=== PATIENT | male | born 1985 | race Two or more races ===

== ENCOUNTER 2024-03-19 12:23 | Inpatient (IN) | payer SELFPAY ==
[2024-03-19] VITALS (15 sets, daily range): BP systolic 100–142; BP diastolic 55–88; PULSE 71–102; RESP 15–97; TEMP 36.1–37.9; O2SAT 97–100; BMI 36.3; BMI 31.8; BMI 34.7
--- NOTE | 2024-03-19 13:09 | XR_ITS ---
Examination: CT abdomen with intravenous contrast CT pelvis with intravenous contrast 2-D coronal reconstructions 2-D sagittal reconstructions Date and time of exam:March 19, 2024 1458 hrs. Indications: Rectal pain today, diagnosis perianal abscess. CTDI: vol (mGy) 10.5 DLP: (mGycm) 640 Technique: Multiple axial sections of the abdomen and pelvis have been obtained. 64 slice high-resolution scanner used. 3 mm axial sections have been obtained, post intravenous injection 60 cc [id number] 2-D sagittal, coronal reconstructions obtained. Low dose protocols were performed. One or more of the following dose reduction techniques were used; automated exposure control, adjustment of the mA and/or KV according to patient size, use of iterative reconstruction technique. Findings: Diffuse fatty infiltration throughout the liver no focal liver or splenic lesions No gallstones No pancreatic or adrenal mass No renal or ureteral calculi, no hydronephrosis Aorta normal size Normal appendix No bowel obstruction Scattered colonic diverticulosis, no diverticulitis No bladder mass Normal seminal vesicles No prostatomegaly Prominent infectious mass with air densities in the anal region, primarily on the left side, measuring at least 7.5 x 6.8 cm with marked cellulitis in the anterior peritoneum Air density extends almost to the base of the scrotum Impression: Large perianal infectious mass, right primarily posterior and left-sided measuring at least 7.5 x 6.8 cm, recommend surgical consultation
--- NOTE | 2024-03-19 13:13 | PD.EDRME ---
Rapid Medical Screening Exam RME Arrival date/time: 03/19/24 12:23 39-year-old male presents emergency department complaints of boil on his buttock ongoing x 4 days patient reports pain and fever Chief Complaint: Skin/Abscess/Foreign Body Time Seen by Provider: 03/19/24 12:34 Vital signs: Vital Signs Temperature 98.5 F 03/19/24 12:59 Pulse Rate 102 H 03/19/24 12:59 Respiratory Rate 18 03/19/24 12:59 Blood Pressure 142/79 H 03/19/24 12:59 Pulse Oximetry (%) 98 03/19/24 12:59 Oxygen Delivery Method Room Air 03/19/24 12:59
--- NOTE | 2024-03-19 13:35 | EDNOTE_ITS ---
ED Skin Abcess FB-RME/HPI General Chief complaint: Skin/Abscess/Foreign Body Stated complaint: BOIL ON LEFT BUTT x 4 DAYS Time Seen by Provider: 03/19/24 12:34 Arrival date/time: 03/19/24 12:23 RME / HPI RME / HPI narrative: 39-year-old male patient with significant history of diabetes mellitus, currently not on medication, according to him controlled with diet, came in for evaluation regarding left gluteal swelling. Patient's been having worsening swelling for the last 5 days, associated with pain, described as dull ache, severity moderate. Patient was also noted to have fever for the last few days. Patient denies any abdominal pain denies any vomiting denies any testicular pain or dysuria. No medication was taken prior to arrival. Related Data Home Medications ?Medication ?Instructions ?Recorded ?Confirmed No Known Home Medications 03/19/24 03/19/24 Allergies Allergy/AdvReac Type Severity Reaction Status Date / Time No Known Allergies Allergy Verified 03/19/24 12:26 Review of Systems Review of Systems Narrative Review of Systems: Review of system reviewed and within normal limits except mentioned in HPI ED Exam Narrative Physical exam: VITAL SIGNS: Reviewe GENERAL APPEARANCE: Alert and interactive, follows commands, no acute distress, HEAD AND FACE: Non-traumatic. ENT: PERRL, pink conjunctivitis, eyelid no trauma, Mucous membrane moist. NECK: Supple, nontender, no nuchal rigidity. CHEST: No tenderness, no crepitus, no paradoxical movement, no retractions. LUNGS: Clear, well ventilated, symmetric, no rales, no wheezing, no ronchi, no stridor, good breath sounds bilaterally. HEART: Regular rate, regular rhythm, no murmur, no gallops. ABDOMEN: Soft, positive bowel sounds, nondistended, no guarding, nontender, no rebound, no masses, RECTAL: 4 x 8 cm swelling, redness, tenderness, left gluteal area near the Perirectal area.+ 2x2 cm necrosis on the middle of the swelling GENITAL: No tenderness no swelling on the scrotum and perineal area NEUROLOGICAL: Gross motor function intact sensory function intact, Appropriate for age. MUSCULOSKELETAL: low back nontender, full range of motion. EXTREMITIES: Nontender, full range of motion. SKIN: Color pink, dry, no rash, no lacerations, no abrasions, no contusions. LYMPHATICS: Deferred. Course Quality Measures none Orders Category Date Time Status Blood glucose [Blood Sugar Check-Sandostatin] STAT Care 03/19/24 16:21 Active COVID-19 Screening Questionnaire NOW Care 03/19/24 16:[address] Screening NOW Care 03/19/24 13:10 Active Decision to Admit X1 Care 03/19/24 16:21 Completed Insert IV NOW Care 03/19/24 13:10 Active NPO NOW Care 03/19/24 17:03 Active Consult to General Surgery Stat Cons 03/19/24 13:53 Ordered Diet NPO (NOW) Diet 03/19/24 17:[address] abdomen pelvis w con Stat Exams 03/19/24 13:09 Completed A1C [Glycohemoglobin w (eAG)] Stat Lab 03/19/24 13:35 Completed Acetone [Beta Hydroxybutyrate] Stat Lab 03/19/24 16:33 Completed Blood Culture (Lab) Stat Lab 03/19/24 13:40 Received CBC Stat Lab 03/19/24 13:35 Completed CMP [Comprehensive Metabolic Panel] Stat Lab 03/19/24 16:33 Completed CRP [C-Reactive Protein] Stat Lab 03/19/24 13:35 Completed Comprehensive Metabolic Panel Stat Lab 03/19/24 13:35 Completed ESR [Sed Rate (ESR)] Stat Lab 03/19/24 13:35 Completed Lactate (Lactic Acid) Stat Lab 03/19/24 13:35 Completed Lactate (Lactic Acid) Stat Lab 03/19/24 16:33 Completed Lactic Acid, 3 HR Stat Lab 03/19/24 19:33 Ordered Procalcitonin Stat Lab 03/19/24 13:35 Completed Urinalysis Stat Lab 03/19/24 17:30 Completed Urine Culture Stat Lab 03/19/24 13:09 Ordered Acetaminophen Tab [Tylenol ES Tab] Med 03/19/24 13:35 Discontinued 1,000 mg PO X1 ONE Insulin Regular Med 03/19/24 14:38 Discontinued 10 unit SC X1 ONE Morphine Inj Med 03/19/24 13:38 Discontinued 4 mg IVP X1 ONE Ondansetron Inj [Zofran Inj] Med 03/19/24 13:38 Discontinued 4 mg IV X1 ONE Piper/Tazo 3.375 gm [Zosyn] 50 ml Med 03/19/24 13:10 Discontinued IV X1 Potassium Chloride [K-Dur] Med 03/19/24 14:38 Discontinued 40 meq PO X1 ONE Sodium Chloride 0.9% 1000 ml [Ns] 1,000 ml Med 03/19/24 13:35 Discontinued IV 999 mls/hr Sodium Chloride 0.9% 1000 ml [Ns] 1,000 ml Med 03/19/24 14:38 Discontinued IV 999 mls/hr Sodium Chloride 0.9% 1000 ml [Ns] 1,000 ml Med 03/19/24 16:30 Discontinued IV 999 mls/hr Vancomycin Inj 1,000 mg Med 03/19/24 13:10 Discontinued Sodium Chloride 0.9% 250 ml [Ns] 250 ml IV X1 Vital Signs Vital signs: Vital Signs Temperature 98.5 F 03/19/24 12:59 Pulse Rate 102 H 03/19/24 12:59 Respiratory Rate 18 03/19/24 12:59 Blood Pressure 142/79 H 03/19/24 12:59 Pulse Oximetry (%) 98 03/19/24 12:59 Oxygen Delivery Method Room Air 03/19/24 12:59 Skin / Abscess / Foreign Body MDM Narrative MDM Narrative:: 39-year-old male patient with significant history of diabetes mellitus, currently not on medication, according to him controlled with diet, came in for evaluation regarding left gluteal swelling. Patient's been having worsening swelling for the last 5 days, associated with pain, described as dull ache, se verity moderate. Patient was also noted to have fever for the last few days. Patient denies any abdominal pain denies any vomiting denies any testicular pain or dysuria. No medication was taken prior to arrival. Patient was initially evaluated by Dr. Elizabeth at 2 PM in the emergency room. Patient was noted to have leukocytosis 34.2 blood sugar was noted to be above 500 with no sign of diabetic ketoacidosis. Patient hemoglobin A1c was noted to be 9.8. Pro-Venkatesh 0.53. CT scan of the abdomen and pelvis showed Large perianal infectious mass, right primarily posterior and left-sided measuring at least 7.5 x 6.8 cm, recommend surgical consultation Patient data External records reviewed:: None Clinical information provided by:: patient Social determinants that could affect healthcare access:: none Patient has the following chronic illnesses:: Diabetes mellitus not on medications How is presenting disease/condition affected by chronic disease/condition?: exacerbated by Evaluation data The following diagnostics were reviewed and interpreted by me:: lab results and radiology exam(s) Lab and/or radiology exams considered but not ordered:: Plan Interpretation Summary: Patient was noted to have leukocytosis 34.2 blood sugar was noted to be above 500 with no sign of diabetic ketoacidosis. Patient hemoglobin A1c was noted to be 9.8. Pro-Venkatesh 0.53. CT scan of the abdomen and pelvis showed Large perianal infectious mass, right primarily posterior and left-sided measuring at least 7.5 x 6.8 cm, recommend surgical consultation Medications / Prescriptions Medications or Prescriptions considered but not ordered:: None Medication administrations:: Medication Administration History Acetaminophen (Acetaminophen 325 Mg Tablet) 650 mg PO Q6H PRN PRN Reason: Fever >100.3 or pain(1-3) Stop: 04/18/24 17:18 Dextrose (Dextrose 50%-Water Inj 50 Ml Syringe) 25 ml IV Q15MIN PRN PRN Reason: BG 50-70 responsive npo pt Stop: 04/18/24 17:38 Dextrose (Dextrose 50%-Water Inj 50 Ml Syringe) 50 ml IV Q15MIN PRN PRN Reason: BG <50 OR BG <70 & pt unresponsive Stop: 04/18/24 17:38 Glucagon (Glucagon Inj 1 Mg Vial) 1 mg IM Q15MIN PRN PRN Reason: BG <70, and no IV access Heparin Sodium (Porcine) (Heparin Sod Inj 5000 Unit/Ml Vial) 5,000 unit SC BID [facility] Stop: 04/03/24 08:59 Sodium Chloride (Ns) 1,000 mls @ 75 mls/hr IV .[id number] [facility]IXON Stop: 04/18/24 17:29 Piperacillin Sod/Tazobactam (Sod 4.5 gm/ Sodium Chloride) 100 mls @ 200 mls/hr IV Q6HR [facility] Stop: 03/26/24 18:06 Sodium Chloride (Ns) 1,000 mls @ 999 mls/hr IV .Q1H1M ONE Stop: 03/19/24 19:10 Last Admin: 03/19/24 18:19 Dose: 999 mls/hr Documented By: GM Ibuprofen (Ibuprofen Tab 600 Mg Tablet) 600 mg PO Q6H PRN PRN Reason: PAIN SCALE 1-3 (mild Stop: 04/18/24 17:23 Insulin Glargine (Insulin Glargine (Lantus) 5 Unit/0.05 Ml (Per 5 Units)) 10 unit SC QDAY [facility] Stop: 04/19/24 08:59 Insulin Human Lispro (Insulin Lispro (Admelog) 1 Unit/0.01 Ml Unit) 0 unit SC Q6HR NIXON; Protocol Stop: 04/18/24 17:44 Last Admin: 03/19/24 17:53 Dose: Not Given Documented By: GM Non-Admin Reason: Cancelled by Provider Morphine Sulfate (Morphine Sulf Inj 10 Mg/Ml Vial) 2 mg IVP Q4HR PRN PRN Reason: PAIN SCALE 7-10 (Severe Stop: 03/24/24 17:29 Nicotine (Nicotine Patch 7 Mg/24 Hr Patch.Td24) 7 mg TOP QDAY [facility] Stop: 04/18/24 17:44 Ondansetron HCl (Ondansetron Inj 2 Mg/Ml Inj 2 Ml) 4 mg IV Q6H PRN; Protocol PRN Reason: NAUSEA OR VOMITING Stop: 04/18/24 17:23 Oxycodone/Acetaminophen (Oxycodone/Apap 5/325 Tablet) 1 tab PO Q6H PRN PRN Reason: PAIN SCALE 4-6 (Moderate Stop: 03/24/24 17:23 Pantoprazole Sodium (Pantoprazole Inj 40 Mg Vial) 40 mg IVP QDAY [facility] Stop: 04/19/24 08:59 Polyethylene Glycol (Polyethylene Glycol 17 Gm Packet) 17 gm PO QDAY PRN PRN Reason: CONSTIPATION Stop: 04/19/24 08:59 Sennosides (Senna Tablet) 1 tab PO QDAY PRN; Protocol PRN Reason: constipation Stop: 04/18/24 17:29 Discontinued Medications Acetaminophen (Acetaminophen 500 Mg Tablet) 1,000 mg PO X1 ONE Stop: 03/19/24 13:36 Last Admin: 03/19/24 14:07 Dose: 1,000 mg Documented By: NEHEMIAS Acetaminophen (Acetaminophen 325 Mg Tablet) 650 mg PO Q6H PRN PRN Reason: Fever >101.5 Stop: 04/18/24 17:18 Acetaminophen (Acetaminophen 325 Mg Tablet) 650 mg PO Q6H PRN PRN Reason: Fever >100.3 or pain(1-3) Stop: 04/18/24 17:18 Acetaminophen (Acetaminophen 325 Mg Tablet) 650 mg PO Q6H PRN PRN Reason: Fever >100.3 or pain(1-3) Stop: 04/18/24 17:18 Fentanyl Citrate (Fentanyl Cit Inj 50 Mcg/Ml Amp 2ml) Confirm Administered Dose 100 mcg .ROUTE .STK-MED ONE Stop: 03/19/24 18:15 Heparin Sodium (Porcine) (Heparin Sod Inj 5000 Unit/Ml Vial) 5,000 unit SC Q8HR [facility] Stop: 04/02/24 21:59 Vancomycin HCl 1,000 mg/ (Sodium Chloride) 250 mls @ 150 mls/hr IV X1 ONE Stop: 03/19/24 14:49 Last Admin: 03/19/24 14:12 Dose: 150 mls/hr Documented By: NEHEMIAS Piperacillin/Tazobactam/Dextrose (Zosyn) 50 mls @ 100 mls/hr IV X1 ONE Stop: 03/19/24 13:39 Last Infusion: 03/19/24 14:50 Dose: Infused Documented By: Admin: 03/19/24 14:11 Dose: 100 mls/hr Documented By: NEHEMIAS Sodium Chloride (Ns) 1,000 mls @ 999 mls/hr IV .Q1H1M ONE Stop: 03/19/24 14:35 Last Infusion: 03/19/24 15:40 Dose: Infused Documented By: Admin: 03/19/24 14:07 Dose: 999 mls/hr Documented By: NEHEMIAS Sodium Chloride (Ns) 1,000 mls @ 999 mls/hr IV .Q1H1M ONE Stop: 03/19/24 15:38 Last Infusion: 03/19/24 16:40 Dose: Infused Documented By: Admin: 03/19/24 15:33 Dose: 999 mls/hr Documented By: Sodium Chloride (Ns) 1,000 mls @ 999 mls/hr IV .Q1H1M ONE Stop: 03/19/24 17:30 Last Admin: 03/19/24 16:40 Dose: 999 mls/hr Documented By: BASILIO Piperacillin/Tazobactam/Dextrose (Zosyn) 50 mls @ 12.5 mls/hr IV Q8HR [facility] Stop: 03/26/24 21:59 Ibuprofen (Ibuprofen Tab 600 Mg Tablet) 600 mg PO Q6H PRN PRN Reason: PAIN SCALE 1-3 (mild Stop: 04/18/24 17:23 Insulin Human Regular (Insulin Hum Regular 1 Unit/0.01 Ml (Per Unit)) 10 unit SC X1 ONE Stop: 03/19/24 14:39 Last Admin: 03/19/24 15:32 Dose: 10 unit Documented By: BASILIO Co-signed By: NEHEMIAS Insulin Human Regular (Insulin Hum Regular 1 Unit/0.01 Ml (Per Unit)) 8 unit SC X1 ONE Stop: 03/19/24 17:28 Last Admin: 03/19/24 17:52 Dose: Not Given Documented By: BASILIO Non-Admin Reason: Duplicate Medication on eMAR Insulin Human Regular (Insulin Hum Regular 1 Unit/0.01 Ml (Per Unit)) 8 unit SC X1 ONE Stop: 03/19/24 17:35 Midazolam HCl (Midazolam Inj 1 Mg/Ml Vial 2 Ml) Confirm Administered Dose 2 mg .ROUTE .STK-MED ONE Stop: 03/19/24 18:15 Morphine Sulfate (Morphine Sulf Inj 10 Mg/Ml Vial) 4 mg IVP X1 ONE Stop: 03/19/24 13:39 Last Admin: 03/19/24 14:08 Dose: 4 mg Documented By: NEHEMIAS Ondansetron HCl (Ondansetron Inj 2 Mg/Ml Inj 2 Ml) 4 mg IV X1 ONE; Protocol Stop: 03/19/24 13:39 Last Admin: 03/19/24 14:08 Dose: 4 mg Documented By: NEHEMIAS Polyethylene Glycol (Polyethylene Glycol 17 Gm Packet) 17 gm PO QDAY PRN PRN Reason: contipation Stop: 04/19/24 08:59 Potassium Chloride (Potassium Chloride 20 Meq Tabcr) 40 meq PO X1 ONE Stop: 03/19/24 14:39 Last Admin: 03/19/24 15:30 Dose: 40 meq Documented By: BASILIO Propofol (Propofol Inj 10 Mg/Ml Vial 20 Ml) Confirm Administered Dose 200 mg IV .STK-MED ONE Stop: 03/19/24 18:15 Patient received potassium, Zofran, morphine, insulin, 2 L of IV fluids NS, IV Zosyn and Vanco. Patient is also given Tylenol for Consultations Consultation(s) initiated? (list below): Yes Consultation #1 (Physician, Specialty, Details): Dr Garcia, general surgeon on-call, thank you Diagnosis Skin/Abscess Differential Diagnosis: abscess of skin or subcutaneous tissue and other (Perirectal abscess, abscess/cellulitis to the gluteal area) Most likely diagnosis given after review of the tests above:: Abscess/cellulitis left gluteal area Admission Indicated Admission indicated?: indicated Explain why admission is indicated or not indicated:: For further management Admission Request Was there a request for admission?: Yes Admission Attestation Admission request attestation: Discussed case with [Dr Glass] from Hospitalist service regarding admission. Discussed patients ED course, exam findings, labs, and radiology results. The Hospitalist [agrees] to accept the patient for admission. Disposition Plan Disposition Plan: Admit Discharge Plan Plan Patient Disposition: Admit Acute Care w/in Hospital Disposition Comment: stable Problem List Clinical Impression: Abscess and cellulitis of gluteal region, Diabetes mellitus
[2024-03-19 14:02] LABS: Lactate (Lactic Acid) 3.5 mMol/L (0.4-2.0)
[2024-03-19 14:04] LABS: Basophils # (Auto) 0.1 Thou/mm3 (0.0-0.2); Basophils % (Auto) 0 % (0-2.5); Eosinophils % (Auto) 0 % (0-10); Hematocrit 40.2 % (41.0-53.0); Hemoglobin 14.4 g/dL (13.5-16.0); Immature Granulocytes % (Auto) 2 % (0-0); Immature Granulocytes Auto 0.67 Thou/mm3 (0.00-0.00); Lymphocytes # (Auto) 1.2 Thou/mm3 (1.0-4.8); Lymphocytes % (Auto) 4 % (10-50); Mean Corpuscular HGB Conc 35.8 g/dl (31.0-37.0); Mean Corpuscular Hemoglobin 30.8 pg (25.0-35.0); Mean Corpuscular Volume 86 fL (80-100); Monocytes # (Auto) 1.2 Thou/mm3 (0.0-0.8); Monocytes % (Auto) 4 % (0-12); Neutrophils % (Auto) 90 % (37-80); Nucleated Red Blood Cell % 0 /100 WBC (0); Platelet Count 447 Thou/mm3 (140-440); RDW Standard Deviation 38.4 fL (35.1-43.9); Red Blood Count 4.67 Miln/mm3 (4.50-5.90); White Blood Count 34.2 Thou/mm3 (3.8-10.6)
[2024-03-19] MEDS: ACETAMINOPHEN 500 MG TABLET 1000 MG PO (14:07)
[2024-03-19] MEDS: SODIUM CHLORIDE 0.9% 1000 ML 1,000 ML 999 ML IV ×4 (14:07→18:19)
[2024-03-19] MEDS: ONDANSETRON INJ 2 MG/ML INJ 2 ML 4 MG IV (14:08)
[2024-03-19] MEDS: MORPHINE SULF INJ 10 MG/ML VIAL 4 MG IVP (14:08)
[2024-03-19] MEDS: PIPER/TAZO 3.375 GM 50 ML IV (14:11)
[2024-03-19] MEDS: Vancomycin Inj 1,000 MG in SODIUM CHLORIDE 0.9% 250 ML 250 ML 150 MG IV (14:12)
[2024-03-19 14:33] LABS: Alanine Aminotransferase 50 U/L (10-49); Albumin, Serum 4.5 gm/dL (3.5-5.0); Albumin/Globulin Ratio 1.2 (1.2-2.2); Alkaline Phosphatase 175 U/L (46-116); Anion Gap 12 (7-16); Aspartate Amino Transferase 34 U/L (0-34); BUN/Creatinine Ratio 13 Ratio (12-20); Bilirubin,Total 0.6 mg/dL (0.3-1.2); Blood Urea Nitrogen 14 mg/dL (9-23); C-Reactive Protein 32.7 mg/dL (0.0-0.9); Calcium 9.3 mg/dL (8.3-10.6); Calcium (Corrected) 9.3 mg/dL (8.5-10.1); Carbon Dioxide 22.5 mMol/L (20.0-31.0); Chloride 91 mMol/L (98-107); Creatinine (Component) 1.1 mg/dL (0.6-1.3); Estimated Creatinine Clearance 96.3 mL/min (>60); Globulin 3.7 gm/dL (2.3-3.5); Osmolality,Calculated 276 (275-295); Potassium 3.7 mMol/L (3.4-5.1); Procalcitonin 0.53 ng/ml (0.0-0.49); Sodium 125 mMol/L (136-145); Total Protein 8.2 gm/dL (5.7-8.2); eGFR > 60 See Note
[2024-03-19 14:34] LABS: Glucose 534 mg/dL (74-106)
[2024-03-19 14:55] LABS: Sed Rate (ESR) 96 mm/hr (0-15)
[2024-03-19 15:03] LABS: Glucose Estimated Average 235 mg/dL (80-131); Hemoglobin A1C 9.8 % Hgb (4.8-6.0)
[2024-03-19] MEDS: POTASSIUM CHLORIDE 20 mEq TABCR 40 MEQ PO (15:30)
[2024-03-19] MEDS: INSULIN HUM REGULAR 1 UNIT/0.01 ML (PER UNIT) 10 UNIT SC ×2 (15:32→18:33)
[2024-03-19 16:36] LABS: Lactate (Lactic Acid) 1.7 mMol/L (0.4-2.0)
[2024-03-19 16:40] LABS: Beta Hydroxybutyrate 0.3 mmol/L (<0.6)
[2024-03-19 16:57] LABS: Reflex Lactate? Y
[2024-03-19 17:01] LABS: Alanine Aminotransferase 43 U/L (10-49); Albumin, Serum 3.9 gm/dL (3.5-5.0); Albumin/Globulin Ratio 1.1 (1.2-2.2); Alkaline Phosphatase 157 U/L (46-116); Anion Gap 11 (7-16); Aspartate Amino Transferase 22 U/L (0-34); BUN/Creatinine Ratio 14 Ratio (12-20); Bilirubin,Total 0.6 mg/dL (0.3-1.2); Blood Urea Nitrogen 11 mg/dL (9-23); Calcium 8.7 mg/dL (8.3-10.6); Calcium (Corrected) 8.8 mg/dL (8.5-10.1); Chloride 98 mMol/L (98-107); Creatinine (Component) 0.8 mg/dL (0.6-1.3); Estimated Creatinine Clearance 132.4 mL/min (>60); Globulin 3.4 gm/dL (2.3-3.5); Glucose 345 mg/dL (74-106); Osmolality,Calculated 277 (275-295); Potassium 3.5 mMol/L (3.4-5.1); Sodium 132 mMol/L (136-145); Total Protein 7.3 gm/dL (5.7-8.2); eGFR > 60 See Note
--- NOTE | 2024-03-19 17:16 | ESHP_ITS ---
<Statement entered by Mynor Prado MD - 03/19/24 18:46> This patient is a 39-year-old male with past medical history of diabetes managed with diet only not on any medication with an A1c of 9.8 presented to the ED with chief complaint of left gluteal swelling and pain from last 5 days. He noted that he had a fever spike of 103 today. Patient had intractable pain today and he came to the ED. Examination showed necrotic abscess on the left gluteal/buttock region. CT abdomen pelvis showed perianal abscess/mass patient is admitted for left gluteal/perianal abscess. Vitals were stable. Patient had elevated procalcitonin and CRP with ESR. White count was elevated at 35. Patient had a significant elevation of blood sugars on labs 530s therefore regular insulin was administered by the ED. We have given additional 10 units of regular insulin as the patient was ready to be taken to the OR by surgeon, Dr. Elizabeth. Will currently managing with IV fluids, IV Zosyn 4.5 g Q6 hourly and ordered blood cultures and MRSA screen. Ordered Lantus 10 units for tomorrow and insulin sliding scale. Diabetic education and refer to registered dietitian. Patient will be kept n.p.o. Will likely follow on tomorrow morning. Surgery recommended to keep a close eye on his blood pressure as he has a high risk of having deep abscess as compared to the imaging and may need possible transfer to higher care facility however he will assess and give his recommendations after surgery. All labs and orders were reviewed. I saw and examined the patient, and I agree with current management stated by Dr Jose D DO,PGY1. Plan of care was discussed with the attending physician and resident physician. Disclaimer: Despite multiple revisions, due to the dictation software being used, the document bellow may not be free of grammatical errors including phonetic/typographic errors. However, this does not deter from our commitment to providing health care in the patient's best interest in mind. Dr. Johan MD, PGY 2 Documentation for date of: 03/19/24 HPI History of Present Illness History of present illness: Patient is a 39-year-old male with a past medical history of diabetes (diet controlled) who presents to the emergency department for chief complaint of right buttock swelling x 4 days. Patient states that for the last 6 days he had some minor drainage of what appeared to be purulent material on his left buttock. Over the last few days however, his right buttock began to swell and became extremely tender, and patient attests to a few fevers over this period. Patient attests to pain on defecation, however denies any hematochezia or melena. Patient states that he had recently been diagnosed with diabetes 1 year ago, but does not follow-up with PCP regularly and states that he was controlling his diabetes with diet. Physical exam reveals significant right buttock swelling, erythema, tenderness, and firmness upon palpation. No apparent drainage or skin breaks are noted on the right buttock. Left buttock shows erythema, tenderness, apparent black scar tissue. No obvious drainage or deep pockets of drainage on pressure however this assessment is limited due to patient pain. Patient denies any recent nausea/vomiting, chest pain/palpitations/chest pressure, abdominal pain, urinary symptoms, sensorineural deficits, changes in vision hearing, loss of consciousness. In the emergency department vitals were blood pressure 142/79, heart rate of 102, respiratory rate 18, temperature 98.5, saturating 100% on room air. White count elevated at 34.2, sodium 125 (corrected 132). Glucose 534, HbA1c 9.8, lactic acid 3.5, C-reactive protein 32.7, Pro-Venkatesh slightly elevated at 0.53. CT abdomen pelvis shows large perianal infectious mass, right primarily posterior and left-sided measuring at least 7.[address] Elizabeth consulted from the emergency department and states that he will perform incision and drainage. Patient given 2 L NS, Zosyn, vancomycin, 10 units insulin. Patient will be admitted for management of perianal abscess. PMH: Diabetes- not on medication PSH: none Social: Alcohol- once a week Drugs- marijuana Smoke- 3 cigarettes a day NKDA Exam Vital Signs Temp Pulse Resp BP Pulse Ox O2 Del Method 98.1 F 77 15 120/65 100 Room Air 03/19/24 15:41 03/19/24 15:20 03/19/24 15:20 03/19/24 15:20 03/19/24 15:20 03/19/24 15:20 Narrative Exam GENERAL: Patient appears to be moderate distress, NC/AT, responsive/cooperative. 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 Eyes open, symmetrical, & clear CARDIO: No chest pain on palpation. Heart RRR, no obvious murmurs PULM: No noted coughing/dyspnea. Lungs CTA B/L, no R/W/R GI: Abdomen soft, nondistended, no pain on palpation. BSx4. URO/MANAGER LEGAL:: No further abnormalities noted. Jett catheter/cannister _ SKIN/MSK/EXT: significant right buttock swelling, erythema, tenderness, and firmness upon palpation. No apparent drainage or skin breaks are noted on the right buttock. Left buttock shows erythema, tenderness, apparent black scar tissue. No obvious drainage or deep pockets of drainage on pressure however this assessment is limited due to patient pain. Pedal pulses present B/L Results: Labs 03/19/24 13:35 03/19/24 16:33 Labs: Short CBC 03/19/24 Range/Units 13:35 WBC 34.2 H (3.8-10.6) Thou/mm3 Hgb 14.4 (13.5-16.0) g/dL Hct 40.2 L (41.0-53.0) % Plt Count 447 H (140-440) Thou/mm3 BMP 03/19/24 03/19/24 13:35 16:33 Sodium 125 L 132 L Potassium 3.7 3.5 Chloride 91 L 98 Carbon Dioxide 22.5 23.0 BUN 14 11 Creatinine 1.1 0.8 Glucose 534 H* 345 H D Calcium 9.3 8.7 Liver Function 03/19/24 03/19/24 Range/Units 13:35 16:33 Total Bilirubin 0.6 0.6 (0.3-1.2) mg/dL AST 34 22 (0-34) U/L ALT 50 H 43 (10-49) U/L Alkaline Phosphatase 175 H 157 H (46-116) U/L Albumin 4.5 3.9 D (3.5-5.0) gm/dL Quality Measures Quality Measures none Medications Home Medications and Allergies Home Medications ?Medication ?Instructions ?Recorded ?Confirmed ?Type No Known Home Medications 03/19/24 03/19/24 History Allergies Allergy/AdvReac Type Severity Reaction Status Date / Time No Known Allergies Allergy Verified 03/19/24 12:26 Visit Medications Sodium Chloride (Ns) 1,000 mls @ 999 mls/hr IV .Q1H1M ONE Stop: 03/19/24 17:30 Last Admin: 03/19/24 16:40 Dose: 999 mls/hr Discontinued Medications Acetaminophen (Acetaminophen 500 Mg Tablet) 1,000 mg PO X1 ONE Stop: 03/19/24 13:36 Last Admin: 03/19/24 14:07 Dose: 1,000 mg Vancomycin HCl 1,000 mg/ (Sodium Chloride) 250 mls @ 150 mls/hr IV X1 ONE Stop: 03/19/24 14:49 Last Admin: 03/19/24 14:12 Dose: 150 mls/hr Piperacillin/Tazobactam/Dextrose (Zosyn) 50 mls @ 100 mls/hr IV X1 ONE Stop: 03/19/24 13:39 Last Infusion: 03/19/24 14:50 Dose: Infused Sodium Chloride (Ns) 1,000 mls @ 999 mls/hr IV .Q1H1M ONE Stop: 03/19/24 14:35 Last Infusion: 03/19/24 15:40 Dose: Infused Sodium Chloride (Ns) 1,000 mls @ 999 mls/hr IV .Q1H1M ONE Stop: 03/19/24 15:38 Last Infusion: 03/19/24 16:40 Dose: Infused Insulin Human Regular (Insulin Hum Regular 1 Unit/0.01 Ml (Per Unit)) 10 unit SC X1 ONE Stop: 03/19/24 14:39 Last Admin: 03/19/24 15:32 Dose: 10 unit Morphine Sulfate (Morphine Sulf Inj 10 Mg/Ml Vial) 4 mg IVP X1 ONE Stop: 03/19/24 13:39 Last Admin: 03/19/24 14:08 Dose: 4 mg Ondansetron HCl (Ondansetron Inj 2 Mg/Ml Inj 2 Ml) 4 mg IV X1 ONE; Protocol Stop: 03/19/24 13:39 Last Admin: 03/19/24 14:08 Dose: 4 mg Potassium Chloride (Potassium Chloride 20 Meq Tabcr) 40 meq PO X1 ONE Stop: 03/19/24 14:39 Last Admin: 03/19/24 15:30 Dose: 40 meq Assessment & Plan Plan Patient is a 39-year-old male with a past medical history of diabetes, diet- controlled presenting with buttock pain and swelling. Patient admitted for management of perianal abscess. #Perianal abscess #Significant cellulitis of buttock area Patient met 2 SIRS criteria on admission with white count of 34.2 and heart rate 102 Physical exam reveals erythema, tenderness, warmth of right and left buttock. CT abdomen pelvis shows large perianal infectious mass right left side proximally measuring 7.5 x 6.8 cm LRINEC Score 9 ?Zosyn 4.5 g 4 times a day 03/19? ?Maintenance fluids -Pain control medication with acetaminophen, oxycodone and morphine in place -MRSA screen ordered, pending -Blood culture ordered, pending -UA and urine culture ordered in the emergency department, pending -Bowel regiment with senna and MiraLAX as needed ? Dr. Elizabeth consulted from emergency department, will perform incision and drainage possibly tonight. Patient's last meal 11 AM today. Appreciate recommendations ?N.p.o. now for possible procedure tonight # Uncontrolled Diabetes Patient has a history of diabetes but does not follow-up with PCP. Patient states that he controls diabetes with diet. Glucose on presentation in ED 534 HbA1c 9.5 Given 10 units regular insulin in ED Repeat glucose 323 -Given another 8 units regular insulin ?Lantus 10 units nightly -Lispro via sliding scale, will adjust accordingly -Hypoglycemic protocol in place ?Bedside glucose checks every 6 hours Diet: NPO GI: Pantoprazole DVT: SCDs, heparin Jett: None [facility] Rec: N/A Code: Full Patient seen and assessed with my attending physician Dr. Nixon and senior resident Dr. Johan Topete D.O. PGY1 Anesthesiology Attending Provider Attestation/Addendum I have discussed and was present for the essential components of the history, physical examination, diagnosis, and treatment plan with the resident. I agree with the patient's care as documented by the resident and amended herein by me. Paul Nixon DO. Admitted for perianal abscess, significant cellulitis in the perianal/buttocks region. Will continue Zosyn at this time, general surgery consulted for urgent I&D, as there is concern for foreign years gangrene considering the extensive nature the patient's cellulitis. A1c ordered, the patient does have uncontrolled diabetes as it appears, significant hyperglycemia on admission. Will continue to monitor closely Although this document has been carefully reviewed, there may still be some phonetic and other typographical errors. These errors are purely grammatical due to imperfections in the software program and should not be construed in any way to compromise the substance of the patient's medical care during this visit.
[2024-03-19 17:45] LABS: Collection Type, Urine Clean Catch
--- NOTE | 2024-03-19 17:45 | PC.NURSE ---
Spoke Dr. Elizabeth and given verbal orders to ready consent for procedure and keep pt NPO.
[2024-03-19 17:52] LABS: Bilirubin,Urine Negative (Negative); Blood,Urine Negative (Negative); Clarity,Urine Clear (Clear/Hazy); Color,Urine Lt-Yellow (Lt Yel-Yel); Glucose, Urine 4+ (Negative); Ketones,Urine Trace (Negative); Leukocyte Esterase,Urine Negative (Negative); Nitrite,Urine Negative (Negative); PH,Urine 6.5 (5.0-7.0); Protein,Urine Negative (Neg - Trace); RBC,Urine < 1 /hpf (0-3); Specific Gravity,Urine 1.036 (1.001-1.035); Squamous Epithelial Cell,Urine < 1 /hpf (0-5); Urobilinogen,Urine Negative mg/dL (0.0-1.0); WBC,Urine < 1 /hpf (0-5)
[2024-03-19 18:03] LABS: Phosphorous 3.8 mg/dL (2.4-5.1)
[2024-03-19 18:30] LABS: Glucose Estimated Average 235 mg/dL (80-131); Hemoglobin A1C 9.8 % Hgb (4.8-6.0)
--- NOTE | 2024-03-19 18:33 | PD.SURCONS ---
HPI Consult details Consult date: 03/19/24 Reason for consultation narrative: The patient was seen in consultation because of large perirectal abscess and inflammation History of present illness: History of present illness that the patient has been a diabetic and has been taking metformin about 4 days ago he noticed some redness. Patient has been started draining today therefore he came to the emergency room. He does have some pain but not unbearable discomfort. He also had a fever. He has not had any major infection in the past Past Medical History Past Medical History CARDIAC: Negative Cardiac Disorders or Congestive Heart Failure RESPIRATORY: Negative Chronic Obstructive Pulmonary Disease (COPD) or Asthma GENITOURINARY: Negative Renal Disease ENDOCRINE: Positive Diabetes Mellitus Type 2; Negative Diabetes Mellitus Type 1 HEMATOLOGIC: Negative Sickle Cell Disease Social History SMOKING STATUS: Heavy (> 1 pack/day) Meds Home Medications and Allergies Home Medications ?Medication ?Instructions ?Recorded ?Confirmed ?Type No Known Home Medications 03/19/24 03/19/24 History Allergies Allergy/AdvReac Type Severity Reaction Status Date / Time No Known Allergies Allergy Verified 03/19/24 12:26 Exam Vital Signs Temp Pulse Resp BP Pulse Ox O2 Del Method 98.1 F 86 15 125/88 H 99 Room Air 03/19/24 18:01 03/19/24 18:01 03/19/24 18:01 03/19/24 18:03/19/24 18:03/19/24 18:01 Narrative Exam Physical examination revealed a well-built well-nourished male who is 5 foot 6 inches tall weighing 197 pounds. His vital signs are normal Constitutional Constitutional: moderate distress Routine Rectal Exam Comments: Examination of the perirectal area showed large cellulitis over the left buttock with necrosis of the skin and some drainage. Patient also has a pilonidal cyst with just open and drain. It is difficult to palpate the left buttock because of the pain Routine Exam Comments: Deferred Routine Extremities Exam Comments: Negative Results Results: Laboratory Laboratory Narrative: Patient's laboratory workup showed a WBC of 34,200 with a shift to the left. His glucose is 534 and his sodium is 125 with chloride of 91 obviously due to hyperglycemia. His lactic acid is 3.5 Results: Imaging Imaging narrative: CT scan showed large perianal abscess with extensive cellulitis in the perineum measuring 7 x 6.8 cm. There are densities showing anaerobic infection Additional studies: After the patient was given 2 L of IV fluid sodium has come up to 132 and his glucose is down to 302. His lactic acid is 1.7 Assessment & Plan Additional Assessment Additional comments: Impression: Perianal cellulitis with necrosis of the skin suggesting fair fascial necrosis Poorly controlled diabetes Sepsis secondary to #1 Plan Plan: Patient may have something similar to [place] gangrene. The necrosis is an ominous sign showing that he may have some subcutaneous necrosis as well. Patient is therefore will require emergency drainage. I told him that he may need to go to the tertiary Medical Center in case we cannot resolve the skin. Patient is agreeable to the immediate incision and drainage and debridement under general anesthesia.
--- NOTE | 2024-03-19 19:48 | SUR.PHASEI ---
pt received to [facility]. lma in place, removed by horace on arrival. pt awake and alert. vss. breathing even and unlabored. underware cdi with packing fluffs and abd pad in place to back side. report from nora and nurse shade
--- NOTE | 2024-03-19 19:54 | ESOP_ITS ---
Date of Procedure 03/19/24 Pre Op Diagnosis Fasciitis over the left buttock with perianal infection Post Op Diagnosis Same Procedure Incision and drainage of the perirectal abscess with extensive debridement of the necrotic tissue Findings Patient had a considerable amount of necrosis on the subcutaneous tissue due to extensive diabetic infection. Therefore the procedure was indicated Procedure Description After the patient was brought to the operating room LMA anesthesia was given. He was then kept in lithotomy position. The left perianal area was washed with Betadine solution and draped in a sterile manner. Timeout was performed. Then made incision over the necrotic skin which was seen over the left buttock and thick purulent material came out which was cultured. Upon further exploration I found extensive necrotic tissue which was grayish something similar to what we see in decubitus ulcer. This required an extensive debridement of the skin subcutaneous tissue all the way down to the fat in the buttock region. Wound was then extensively irrigated with Pulsavac and packed with wet Kerlix roll and dressing was applied with fluff. Patient tolerated the procedure well Anesthesia other (General LMA) Pathology / specimen None IVF Infused 800 Estimated Blood Loss 100 Surgeon Isabella Garcia MD Surgical Staff Operation Date: 03/19/24 18:30 Case Staff HEALTH CARE SOCIAL WORKER: Andrew Randall RNnutrient management specialist: Jonathon Simms RNnutrient management specialist: Dayanna Buck
[2024-03-19] MEDS: fentaNYL CIT INJ 50 mCg/ML AMP 2ML IV (20:19)
--- NOTE | 2024-03-19 20:30 | SUR.PHASEI ---
report called to nurse park on ms. pt transported via bed. alert and oriented. dressing remains intact. vss. breathing cdi. fc draining to gravity. states pain relief from iv m,ed. denies nausea.
[2024-03-19] MEDS: SODIUM CHLORIDE 0.9% 1000 ML 1,000 ML 100 ML IV (21:05)
[2024-03-19] MEDS: oxyCODONE/APAP 5/325 TABLET 1 TAB PO (21:34)
[2024-03-19 22:04] LABS: Amphetamine/Methamp Scrn,U Negative (Negative); Barbiturate Screen,Urine Negative (Negative); Benzodiazepines Screen,Urine Negative (Negative); Benzoylecgonine Screen, Ur Negative (Negative); Creatinine MALB Rnd Ur 27 mg/dL (30-125); Fentanyl Screen,Urine Negative (Negative); Microalbumin, Random Urine < 3 mg/L (0-300); Opiate Screen,Urine Positive (Negative); THC Screen,Urine Positive (Negative)
--- NOTE | 2024-03-19 22:50 | PC.NURSE ---
Zosyn scheduled at 1826 not given due to Pt arrived to [facility] floor at 2034. Per Joey, pharmacist, okay to start medication at midnight of 03/20/24.
--- NOTE | 2024-03-19 22:55 | PC.NURSE ---
Tahirasyn scheduled at 1826 not given due Pt arrived to [facility] floor at 2034. Per Joey, pharmacist, jackie to start medication at midnight of 03/20/24.
[2024-03-19] MEDS: PIPER/TAZO INJ 4.5 GM in SODIUM CHLORIDE 0.9% (P) 100 ML IV (23:20)
[2024-03-20] VITALS (12 sets, daily range): BP systolic 107–121; BP diastolic 55–78; PULSE 82–100; RESP 13–98; TEMP 36.1–36.8; O2SAT 97–99
[2024-03-20] MEDS: oxyCODONE/APAP 5/325 TABLET 1 TAB PO ×3 (03:35→21:23)
[2024-03-20] MEDS: PIPER/TAZO INJ 4.5 GM in SODIUM CHLORIDE 0.9% (P) 100 ML IV ×3 (05:23→17:58)
[2024-03-20 06:07] LABS: Basophils # (Auto) 0.1 Thou/mm3 (0.0-0.2); Basophils % (Auto) 0 % (0-2.5); Eosinophils # (Auto) 0.1 Thou/mm3 (0.0-0.5); Eosinophils % (Auto) 0 % (0-10); Hematocrit 31.4 % (41.0-53.0); Hemoglobin 10.9 g/dL (13.5-16.0); Immature Granulocytes % (Auto) 2 % (0-0); Immature Granulocytes Auto 0.55 Thou/mm3 (0.00-0.00); Lymphocytes # (Auto) 2.8 Thou/mm3 (1.0-4.8); Lymphocytes % (Auto) 9 % (10-50); Mean Corpuscular HGB Conc 34.7 g/dl (31.0-37.0); Mean Corpuscular Volume 89 fL (80-100); Monocytes # (Auto) 1.6 Thou/mm3 (0.0-0.8); Monocytes % (Auto) 5 % (0-12); Neutrophils # (Auto) 27.3 Thou/mm3 (1.8-7.7); Neutrophils % (Auto) 84 % (37-80); Nucleated Red Blood Cell % 0 /100 WBC (0); Platelet Count 388 Thou/mm3 (140-440); RDW Standard Deviation 40.6 fL (35.1-43.9); Red Blood Count 3.52 Miln/mm3 (4.50-5.90); White Blood Count 32.5 Thou/mm3 (3.8-10.6)
[2024-03-20 06:16] LABS: INR 1.1 (0.9-1.3); Partial Thromboplastin Time 37.9 Seconds (22.0-36.0); Prothrombin Time 12.4 Seconds (9.0-12.2)
[2024-03-20 06:48] LABS: Alanine Aminotransferase 47 U/L (10-49); Albumin, Serum 3.5 gm/dL (3.5-5.0); Albumin/Globulin Ratio 1.2 (1.2-2.2); Alkaline Phosphatase 132 U/L (46-116); Anion Gap 10 (7-16); Aspartate Amino Transferase 27 U/L (0-34); BUN/Creatinine Ratio 13 Ratio (12-20); Bilirubin,Total 0.8 mg/dL (0.3-1.2); Blood Urea Nitrogen 10 mg/dL (9-23); Calcium 8.2 mg/dL (8.3-10.6); Calcium (Corrected) 8.6 mg/dL (8.5-10.1); Carbon Dioxide 24.3 mMol/L (20.0-31.0); Chloride 99 mMol/L (98-107); Creatinine (Component) 0.8 mg/dL (0.6-1.3); Estimated Creatinine Clearance 138.4 mL/min (>60); Globulin 2.9 gm/dL (2.3-3.5); Glucose 147 mg/dL (74-106); Magnesium 1.9 mg/dL (1.6-2.6); Osmolality,Calculated 268 (275-295); Phosphorous 2.6 mg/dL (2.4-5.1); Potassium 3.3 mMol/L (3.4-5.1); Sodium 133 mMol/L (136-145); Total Protein 6.4 gm/dL (5.7-8.2); eGFR > 60 See Note
[2024-03-20] MEDS: HEPARIN SOD INJ 5000 UNIT/ML VIAL SC ×2 (08:25→21:45)
[2024-03-20] MEDS: PANTOPRAZOLE INJ 40 MG VIAL IVP (08:26)
[2024-03-20] MEDS: INSULIN GLARGINE (Lantus) 5 UNIT/0.05 ML (PER 5 UNITS) 10 UNIT SC (08:26)
[2024-03-20] MEDS: INSULIN LISPRO (AdmeLOG) 1 UNIT/0.01 ML UNIT SC ×4 (08:26→21:46)
[2024-03-20] MEDS: MORPHINE SULF INJ 10 MG/ML VIAL 5 MG IVP (08:34)
[2024-03-20] MEDS: POT PHOS 15 mMol in NS 250 ML 15 MMOL/250 ML BAG 62.5 MMOL IV (10:12)
--- NOTE | 2024-03-20 10:23 | PD.SURPROG ---
Documentation for date of: 03/20/24 Subjective Subjective Brief History: History of present illness that the patient has been a diabetic and has been taking metformin about 4 days ago he noticed some redness. Patient has been started draining today therefore he came to the emergency room. He does have some pain but not unbearable discomfort. He also had a fever. He has not had any major infection in the past Narrative: The patient says he is feeling much better after the drainage of the perirectal abscess and debridement Exam Vital Signs Temp Pulse Resp BP Pulse Ox O2 Del Method O2 Flow Rate 98.1 F 87 16 107/58 L 99 Room Air 10 03/20/24 08:00 03/20/24 10:14 03/20/24 10:14 03/20/24 08:00 03/20/24 08:00 03/20/24 08:00 03/19/24 19:48 His vital signs are normal Results Results: Laboratory Laboratory Narrative: WBC is around 32,000 which is still high Assessment & Plan Assessment Additional comments: Impression: Abscess left buttock the perirectal area Plan Plan we shall continue IV antibiotics, wait for the cultures, continue the dressing changes Procedures Procedures Incision and drainage of the perirectal abscess with extensive debridement of the necrotic tissue
[2024-03-20] MEDS: DOXYCYCLINE INJ 100 MG in SODIUM CHLORIDE 0.9% (P) 100 ML IV ×2 (12:29→20:34)
--- NOTE | 2024-03-20 14:16 | PD.RESPRO ---
Documentation for date of: 03/20/24 Subjective Subjective Interval history: 03/20: Patient had incision and drainage plus extensive debridement of necrotic tissue yesterday by Dr. Elizabeth. EBL 100 ml per op report. This a.m. vital signs stable. White count still elevated 32.5, CBC appears stable. Patient denies any new symptoms, states that the pain has decreased and appears well-controlled at this moment. MRSA screen negative. Currently pending blood, wound, urine cultures. Adding doxycycline to her regimen given Gram stain initial results of GPC. Pending further surgery recommendations. Exam Vital Signs Temp Pulse Resp BP Pulse Ox O2 Del Method O2 Flow Rate 97.4 F 95 16 120/68 98 Room Air 10 03/20/24 12:00 03/20/24 12:00 03/20/24 12:00 03/20/24 12:00 03/20/24 12:03/20/24 12:03/19/24 19:48 Narrative Exam GENERAL: Patient appears to be moderate distress, NC/AT, responsive/cooperative. 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 Eyes open, symmetrical, & clear CARDIO: No chest pain on palpation. Heart RRR, no obvious murmurs PULM: No noted coughing/dyspnea. Lungs CTA B/L, no R/W/R GI: Abdomen soft, nondistended, no pain on palpation. BSx4. 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 Jett catheter/cannister _ SKIN/MSK/EXT: Buttock wound packed with Kerlix and dressing in place. Site of packing appears clean dry and intact. No purulent drainage noted on pressure. Pedal pulses present B/L Objective Labs 03/20/24 04:58 03/20/24 04:58 Labs: Laboratory Results - last 24 hr 03/19/24 03/19/24 03/19/24 13:35 16:33 17:30 WBC 34.2 H RBC 4.67 Hgb 14.4 Hct 40.2 L MCV 86 MCH 30.8 MCHC 35.8 RDW Std Deviation 38.4 Plt Count 447 H Neut % (Auto) 90 H Lymph % (Auto) 4 L [place] % (Auto) 4 Eos % (Auto) 0 Baso % (Auto) 0 Neut # (Auto) 31.0 H Lymph # (Auto) 1.2 [place] # (Auto) 1.2 H Eos # (Auto) 0.0 Baso # (Auto) 0.1 Immature Gran # (Auto) 0.67 H Absolute Nucleated RBC 0.00 Immature Gran % 2 H Nucleated RBC % 0 ESR 96 H PT INR APTT Sodium 125 L 132 L Potassium 3.7 3.5 Chloride 91 L 98 Carbon Dioxide 22.5 23.0 Anion Gap 12 11 BUN 14 11 Creatinine 1.1 0.8 Estim Creat Clear Calc 96.3 132.4 eGFR > 60 > 60 BUN/Creatinine Ratio 13 14 Glucose 534 H* [address] Glu mg/dL 235 H Hemoglobin A1c 9.8 H Calculated Osmolality 276 277 Lactic Acid 1.7 Calcium 9.3 8.7 Corrected Calcium 9.3 8.8 Phosphorus 3.8 Magnesium 2.0 Total Bilirubin 0.6 0.6 AST 34 22 ALT 50 H 43 Alkaline Phosphatase 175 H 157 H C-Reactive Prot, Quant 32.7 H Total Protein 8.2 7.3 Albumin 4.5 3.9 D Globulin 3.7 H 3.4 Albumin/Globulin Ratio 1.2 1.1 L Beta-Hydroxybutyrate/Acetoacetate 0.3 Procalcitonin 0.53 H Ur Collection Type Clean Catch Urine Color Lt-Yellow Urine Clarity Clear Urine pH 6.5 Ur Specific [employer] 1.036 H Urine Protein Negative Urine Glucose (UA) 4+ A Urine Ketones Trace Urine Blood Negative Urine Nitrite Negative Urine Bilirubin Negative Urine Urobilinogen (Auto) Negative Ur Leukocyte Esterase Negative Urine RBC < 1 Urine WBC < 1 Ur Squamous Epith Cells < 1 Urine Bacteria None Ur Random Microalbumin < 3 U Creat (Microalbumin) 27 L Microalb/Creat Ratio Urine Opiates Screen Positive A Urine Fentanyl Screen Negative Ur Barbiturates Screen Negative U Amphetamin/Meth Scrn Negative U Benzodiazepines Scrn Negative U Cocaine Metab Screen Negative U Marijuana (THC) Screen Positive A 03/19/24 03/20/24 17:50 04:58 WBC 32.5 H RBC 3.52 L Hgb 10.9 L D Hct 31.4 L MCV 89 MCH 31.0 MCHC 34.7 RDW Std Deviation 40.6 Plt Count 388 D Neut % (Auto) 84 H Lymph % (Auto) 9 L [place] % (Auto) 5 Eos % (Auto) 0 Baso % (Auto) 0 Neut # (Auto) 27.3 H Lymph # (Auto) 2.8 [place] # (Auto) 1.6 H Eos # (Auto) 0.1 Baso # (Auto) 0.1 Immature Gran # (Auto) 0.55 H Absolute Nucleated RBC 0.00 Immature Gran % 2 H Nucleated RBC % 0 ESR PT 12.4 H INR 1.1 APTT 37.9 H Sodium 133 L Potassium 3.3 L Chloride 99 Carbon Dioxide 24.3 Anion Gap 10 BUN 10 Creatinine 0.8 Estim Creat Clear Calc 138.4 eGFR > 60 BUN/Creatinine Ratio 13 Glucose [address] Glu mg/dL 235 H Hemoglobin A1c 9.8 H Calculated Osmolality 268 L Lactic Acid Calcium 8.2 L Corrected Calcium 8.6 Phosphorus 2.6 Magnesium 1.9 Total Bilirubin 0.8 AST 27 ALT 47 Alkaline Phosphatase 132 H D C-Reactive Prot, Quant Total Protein 6.4 Albumin 3.5 Globulin 2.9 Albumin/Globulin Ratio 1.2 Beta-Hydroxybutyrate/Acetoacetate Procalcitonin Ur Collection Type Urine Color Urine Clarity Urine pH Ur Specific [employer] Urine Protein Urine Glucose (UA) Urine Ketones Urine Blood Urine Nitrite Urine Bilirubin Urine Urobilinogen (Auto) Ur Leukocyte Esterase Urine RBC Urine WBC Ur Squamous Epith Cells Urine Bacteria Ur Random Microalbumin U Creat (Microalbumin) Microalb/Creat Ratio Urine Opiates Screen Urine Fentanyl Screen Ur Barbiturates Screen U Amphetamin/Meth Scrn U Benzodiazepines Scrn U Cocaine Metab Screen U Marijuana (THC) Screen Quality Measures Quality Measures none Assessment & Plan Assessment Current Active Medications: Generic Name Dose Route Start Last Admin Trade Name Brian PRN Reason Stop Dose Admin Acetaminophen 650 mg 03/19/24 23:42 Acetaminophen 325 Mg Tablet PO 04/18/24 17:18 Q6H PRN Fever >100.3 or pain(1-3) Dextrose 25 ml 03/19/24 17:39 Dextrose 50%-Water Inj 50 Ml Syringe IV 04/18/24 17:38 Q15MIN PRN BG 50-70 responsive npo pt Dextrose 50 ml 03/19/24 17:39 Dextrose 50%-Water Inj 50 Ml Syringe IV 04/18/24 17:38 Q15MIN PRN BG <50 OR BG <70 & pt unresponsive Glucagon 1 mg 03/19/24 17:39 Glucagon Inj 1 Mg Vial IM Q15MIN PRN BG <70, and no IV access Heparin Sodium (Porcine) 5,000 unit 03/20/24 09:00 03/20/24 08:25 Heparin Sod Inj 5000 Unit/Ml Vial SC 04/03/24 08:59 5,000 unit BID NIXON Administration Piperacillin Sod/Tazobactam 100 mls @ 200 mls/hr 03/19/24 18:07 03/20/24 13:14 Sod 4.5 gm/ Sodium Chloride IV 03/26/24 18:06 200 mls/hr Q6HR NIXON Administration Sodium Chloride 1,000 mls @ 100 mls/hr 03/19/24 18:27 03/19/24 21:05 Ns IV 04/18/24 18:26 100 mls/hr .Q10H NIXON Administration Acetaminophen 1,000 mg in 100 mls @ 250 mls/hr 03/19/24 19:31 Ofirmev Inj IV 03/22/24 19:30 Q6HR PRN PAIN SCALE 4-10(Mod-Sev Doxycycline Hyclate 100 mg/ 100 mls @ 100 mls/hr 03/20/24 10:30 03/20/24 12:29 Sodium Chloride IV 03/27/24 10:29 100 mls/hr BID NIXON Administration Ibuprofen 600 mg 03/19/24 17:42 Ibuprofen Tab 600 Mg Tablet PO 04/18/24 17:23 Q6H PRN PAIN SCALE 1-3 (mild Insulin Glargine 10 unit 03/20/24 09:00 03/20/24 08:26 Insulin Glargine (Lantus) 5 Unit/0.05 Ml (Per 5 Units) SC 04/19/24 08:59 10 unit QDAY NIXON Administration Insulin Human Lispro 0 unit 03/20/24 07:30 03/20/24 12:38 Insulin Lispro (Admelog) 1 Unit/0.01 Ml Unit SC 04/19/24 07:29 1 unit ACHS NIXON Administration Protocol Morphine Sulfate 5 mg 03/20/24 11:41 Morphine Sulf Inj 10 Mg/Ml Vial IVP 03/24/24 20:47 Q4HR PRN PAIN SCALE 7-10 (Severe Nicotine 7 mg 03/19/24 17:45 03/20/24 12:23 Nicotine Patch 7 Mg/24 Hr Patch.Td24 TOP 04/18/24 17:44 Not Given QDAY NIXON Ondansetron HCl 4 mg 03/19/24 20:48 Ondansetron Inj 2 Mg/Ml Inj 2 Ml IV 04/18/24 20:47 Q4HR PRN NAUSEA OR VOMITING Oxycodone/Acetaminophen 1 tab 03/19/24 17:24 03/20/24 03:35 Oxycodone/Apap 5/325 Tablet PO 03/24/24 17:23 1 tab Q6H PRN Administration PAIN SCALE 4-6 (Moderate Pantoprazole Sodium 40 mg 03/20/24 09:00 03/20/24 08:26 Pantoprazole Inj 40 Mg Vial IVP 04/19/24 08:59 40 mg QDAY NIXON Administration Polyethylene Glycol 17 gm 03/19/24 18:08 Polyethylene Glycol 17 Gm Packet PO 04/19/24 08:59 QDAY PRN CONSTIPATION Sennosides 1 tab 03/19/24 17:30 Senna Tablet PO 04/18/24 17:29 QDAY PRN constipation Protocol Plan Patient is a 39-year-old male with a past medical history of diabetes, diet-controlled presenting with buttock pain and swelling. Patient admitted for management of perianal abscess. #Bharati-rectal abscess #Significant cellulitis of buttock area Patient met 2 SIRS criteria on admission with white count of 34.2 and heart rate 102 Physical exam reveals erythema, tenderness, warmth of right and left buttock. CT abdomen pelvis shows large perianal infectious mass right left side proximally measuring 7.5 x 6.8 cm LRINEC Score [address] Guerrero from incision and drainage and debridement of necrotic tissue on 03/19 Wound packed with Kerlix and dressing applied. ?Zosyn 4.5 g 4 times a day 03/19? ?Doxycycline 100 mg twice daily 03/20? ?Maintenance fluids -Pain control medication with acetaminophen, oxycodone and morphine in place -Blood culture ordered, pending -UA and urine culture ordered in the emergency department, pending -Bowel regiment with senna and MiraLAX as needed ? Dr. Elizabeth performed incision and drainage as well as debridement of necrotic tissue, currently following. Appreciate recommendations ? Diabetic diet # Uncontrolled Diabetes Patient has a history of diabetes but does not follow-up with PCP. Patient states that he controls diabetes with diet. Glucose on presentation in ED 534 HbA1c 9.5 Given 10 units regular insulin in ED ?Lantus 10 units nightly -Lispro via sliding scale, will adjust accordingly -Hypoglycemic protocol in place ?Bedside glucose checks every 6 hours Diet: Diabetic Diet GI: Pantoprazole DVT: SCDs, heparin Jett: None Lines: Peripheral Dispo: MedSurg Med Rec: N/A Code: Full Patient seen and assessed with my attending physician Dr. Nixon and Dr. Debbie Topete D.O. PGY1 Anesthesiology Senior Resident Attestation: I discussed with and supervised the sports internship physician involved in the care of this patient. I personally saw and examined the patient and discussed the assessment and plan with the entire medicine team, including my attending. I agree with the assessment and plan as documented above. [ Patient seen examined at bedside. Patient is status post day 2 of perirectal abscess status post I&D. Patient is currently on Zosyn and doxycycline. Surgery is following appreciate recommendations. Patient's been afebrile overnight. Labs and vitals were reviewed. Patient is tolerating p.o. intake. Patient was complaining about mild tenderness to touch in the area pain after the I&D has improved. Patient is currently on insulin sliding scale Lantus 10 units. Wound is currently packed follow-up with surgery. ] - Patient's care was discussed with my attending physician. Pepe Lewis MD Internal Medicine PGY-3 Attending Provider Attestation/Addendum I have discussed and was present for the essential components of the history, physical examination, diagnosis, and treatment plan with the resident. I agree with the patient's care as documented by the resident and amended herein by me. Paul Nixon DO. Patient seen and evaluated this AM. Patient now postop day 1 for perineal abscess and severe cellulitis of the bilateral buttocks. Will continue broad-spectrum antibiotics for now, patient has no subjective complaints actually states he feels better today. Will continue broad-spectrum antibiotic, will continue to follow-up with cultures, appreciate general surgery recommendations. Wound care on board, we also had an extensive discussion on the patient's diabetes and the importance for improved blood glucose control to prevent potential future infections. Will continue to monitor closely Although this document has been carefully reviewed, there may still be some phonetic and other typographical errors. These errors are purely grammatical due to imperfections in the software program and should not be construed in any way to compromise the substance of the patient's medical care during this visit.
[2024-03-20] MEDS: SODIUM CHLORIDE 0.9% 1000 ML 1,000 ML 100 ML IV (20:34)
[2024-03-21] VITALS (11 sets, daily range): BP systolic 112–136; BP diastolic 68–78; PULSE 75–88; RESP 15–98; TEMP 36–36.3; O2SAT 96–99; BMI 34.6
[2024-03-21] MEDS: PIPER/TAZO INJ 4.5 GM in SODIUM CHLORIDE 0.9% (P) 100 ML IV ×2 (00:14→05:37)
[2024-03-21] MEDS: MORPHINE SULF INJ 10 MG/ML VIAL 5 MG IVP ×3 (01:28→19:22)
[2024-03-21 06:22] LABS: Basophils # (Auto) 0.1 Thou/mm3 (0.0-0.2); Basophils % (Auto) 1 % (0-2.5); Eosinophils # (Auto) 0.1 Thou/mm3 (0.0-0.5); Eosinophils % (Auto) 0 % (0-10); Hematocrit 32.2 % (41.0-53.0); Hemoglobin 11.5 g/dL (13.5-16.0); Immature Granulocytes % (Auto) 2 % (0-0); Immature Granulocytes Auto 0.33 Thou/mm3 (0.00-0.00); Lymphocytes # (Auto) 2.5 Thou/mm3 (1.0-4.8); Lymphocytes % (Auto) 12 % (10-50); Mean Corpuscular HGB Conc 35.7 g/dl (31.0-37.0); Mean Corpuscular Hemoglobin 31.4 pg (25.0-35.0); Mean Corpuscular Volume 88 fL (80-100); Monocytes # (Auto) 1.2 Thou/mm3 (0.0-0.8); Monocytes % (Auto) 6 % (0-12); Neutrophils # (Auto) 16.1 Thou/mm3 (1.8-7.7); Neutrophils % (Auto) 80 % (37-80); Nucleated Red Blood Cell % 0 /100 WBC (0); Platelet Count 459 Thou/mm3 (140-440); RDW Standard Deviation 39.6 fL (35.1-43.9); Red Blood Count 3.66 Miln/mm3 (4.50-5.90); White Blood Count 20.3 Thou/mm3 (3.8-10.6)
[2024-03-21 06:40] LABS: Alanine Aminotransferase 100 U/L (10-49); Albumin, Serum 3.4 gm/dL (3.5-5.0); Alkaline Phosphatase 174 U/L (46-116); Anion Gap 7 (7-16); Aspartate Amino Transferase 63 U/L (0-34); BUN/Creatinine Ratio 10 Ratio (12-20); Bilirubin,Total 0.6 mg/dL (0.3-1.2); Blood Urea Nitrogen 8 mg/dL (9-23); Calcium 8.6 mg/dL (8.3-10.6); Calcium (Corrected) 9.1 mg/dL (8.5-10.1); Carbon Dioxide 27.1 mMol/L (20.0-31.0); Chloride 100 mMol/L (98-107); Creatinine (Component) 0.8 mg/dL (0.6-1.3); Estimated Creatinine Clearance 138.4 mL/min (>60); Globulin 3.4 gm/dL (2.3-3.5); Glucose 227 mg/dL (74-106); Magnesium 2.2 mg/dL (1.6-2.6); Osmolality,Calculated 273 (275-295); Phosphorous 2.6 mg/dL (2.4-5.1); Potassium 3.2 mMol/L (3.4-5.1); Sodium 134 mMol/L (136-145); Total Protein 6.8 gm/dL (5.7-8.2); eGFR > 60 See Note
[2024-03-21] MEDS: INSULIN LISPRO (AdmeLOG) 1 UNIT/0.01 ML UNIT SC ×4 (07:32→21:15)
[2024-03-21] MEDS: DOXYCYCLINE INJ 100 MG in SODIUM CHLORIDE 0.9% (P) 100 ML IV ×2 (09:24→21:09)
[2024-03-21] MEDS: POTASSIUM CHLORIDE 20 mEq TABCR 40 MEQ PO (09:24)
[2024-03-21] MEDS: oxyCODONE/APAP 5/325 TABLET 1 TAB PO (09:24)
[2024-03-21] MEDS: HEPARIN SOD INJ 5000 UNIT/ML VIAL SC ×2 (09:25→21:13)
[2024-03-21] MEDS: PANTOPRAZOLE INJ 40 MG VIAL IVP (09:25)
[2024-03-21] MEDS: SODIUM CHLORIDE 0.9% 1000 ML 1,000 ML 100 ML IV ×2 (09:25→20:59)
--- NOTE | 2024-03-21 09:38 | ESPR_ITS ---
<Statement entered by Mynor Prado MD - 03/21/24 14:23> Patient was seen and examined at the bedside. 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 Patient is also complaining of abdominal discomfort and denied having a bowel movement for many days. He ordered bolus of fluids because his blood pressure was soft this morning. Hemoglobin stable at 11.4. Ordered a KUB and bowel regimen including Movantik, lactulose and MiraLAX. Will continue with ceftriaxone and doxycycline as wound culture grew Staph aureus. Rest of the labs are unremarkable. Will likely continue and follow with surgery recommendations. All labs and orders were reviewed. I saw and examined the patient, and I agree with current management stated by Dr Jose D MD,PGY1. Plan of care was discussed with the attending physician and resident physician. Disclaimer: Despite multiple revisions, due to the dictation software being used, the document bellow may not be free of grammatical errors including phonetic/typographic errors. However, this does not deter from our commitment to providing health care in the patient's best interest in mind. Dr. Johan MD, PGY 2 Documentation for date of: 03/21/24 Subjective Subjective Interval history: 03/20: Patient had incision and drainage plus extensive debridement of necrotic tissue yesterday by Dr. Elizabeth. EBL 100 ml per op report. This a.m. vital signs stable. White count still elevated 32.5, CBC appears stable. Patient denies any new symptoms, states that the pain has decreased and appears well-controlled at this moment. MRSA screen negative. Currently pending blood, wound, urine cultures. Adding doxycycline to her regimen given Gram stain initial results of GPC. Pending further surgery recommendations. 03/21: No acute events overnight. Patient resting comfortably. Vital signs stable. White count downtrending 20.3 from 32.5. Labs show potassium of 3.2, repleted blood sugar high today at 227. Readjusting insulin dose. Blood cultures no growth in 24 hours, abscess and wound culture still pending. Pending recommendations from surgery. Exam Vital Signs Temp Pulse Resp BP Pulse Ox O2 Del Method O2 Flow Rate 97.2 F 82 17 121/69 99 Room Air 10 03/21/24 08:00 03/21/24 08:00 03/21/24 08:00 03/21/24 08:00 03/21/24 08:00 03/21/24 08:00 03/19/24 19:48 Narrative Exam GENERAL: Patient appears to be moderate distress, NC/AT, responsive/cooperative. 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 Eyes open, symmetrical, & clear CARDIO: No chest pain on palpation. Heart RRR, no obvious murmurs PULM: No noted coughing/dyspnea. Lungs CTA B/L, no R/W/R GI: Abdomen soft, nondistended, no pain on palpation. BSx4. 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 Jett catheter/cannister _ SKIN/MSK/EXT: Buttock wound packed with Kerlix and dressing in place. Site of packing appears clean dry and intact. No purulent drainage noted on pressure. Pedal pulses present B/L Objective Labs 03/21/24 05:35 03/21/24 05:35 Labs: Laboratory Results - last 24 hr 03/21/24 05:35 WBC 20.3 H D RBC 3.66 L Hgb 11.5 L Hct 32.2 L MCV 88 MCH 31.4 MCHC 35.7 RDW Std Deviation 39.6 Plt Count 459 H D Neut % (Auto) 80 Lymph % (Auto) 12 [place] % (Auto) 6 Eos % (Auto) 0 Baso % (Auto) 1 Neut # (Auto) 16.1 H Lymph # (Auto) 2.5 [place] # (Auto) 1.2 H Eos # (Auto) 0.1 Baso # (Auto) 0.1 Immature Gran # (Auto) 0.33 H Absolute Nucleated RBC 0.00 Immature Gran % 2 H Nucleated RBC % 0 Sodium 134 L Potassium 3.2 L Chloride 100 Carbon Dioxide 27.1 Anion Gap 7 BUN 8 L Creatinine 0.8 Estim Creat Clear Calc 138.4 eGFR > 60 BUN/Creatinine Ratio 10 L Glucose 227 H D Calculated Osmolality 273 L Calcium 8.6 Corrected Calcium 9.1 Phosphorus 2.6 Magnesium 2.2 Total Bilirubin 0.6 AST 63 H ALT 100 H Alkaline Phosphatase 174 H D Total Protein 6.8 Albumin 3.4 L Globulin 3.4 Albumin/Globulin Ratio 1.0 L Quality Measures Quality Measures none Assessment & Plan Assessment Current Active Medications: Generic Name Dose Route Start Last Admin Trade Name Freq PRN Reason Stop Dose Admin Acetaminophen 650 mg 01/11/25 23:42 Acetaminophen 325 Mg Tablet PO 04/18/24 17:18 Q6H PRN Fever >100.3 or pain(1-3) Dextrose 25 ml 03/19/24 17:39 Dextrose 50%-Water Inj 50 Ml Syringe IV 04/18/24 17:38 Q15MIN PRN BG 50-70 responsive npo pt Dextrose 50 ml 03/19/24 17:39 Dextrose 50%-Water Inj 50 Ml Syringe IV 04/18/24 17:38 Q15MIN PRN BG <50 OR BG <70 & pt unresponsive Glucagon 1 mg 03/19/24 17:39 Glucagon Inj 1 Mg Vial IM Q15MIN PRN BG <70, and no IV access Heparin Sodium (Porcine) 5,000 unit 03/20/24 09:00 03/20/24 21:45 Heparin Sod Inj 5000 Unit/Ml Vial SC 04/03/24 08:59 5,000 unit BID NIXON Administration Sodium Chloride 1,000 mls @ 100 mls/hr 03/19/24 18:27 03/21/24 09:25 Ns IV 04/18/24 18:26 100 mls/hr .Q10H NIXON Administration Acetaminophen 1,000 mg in 100 mls @ 250 mls/hr 03/19/24 19:31 Ofirmev Inj IV 03/22/24 19:30 Q6HR PRN PAIN SCALE 4-10(Mod-Sev Doxycycline Hyclate 100 mg/ 100 mls @ 100 mls/hr 03/20/24 10:30 03/21/24 09:24 Sodium Chloride IV 03/27/24 10:29 100 mls/hr BID NIXON Administration Ceftriaxone Sodium/Dextrose 50 mls @ 100 mls/hr 03/21/24 14:00 Rocephin/D5w 1gm Iv Premix IV 03/28/24 13:59 QDAY NIXON Ibuprofen 600 mg 03/19/24 17:42 Ibuprofen Tab 600 Mg Tablet PO 04/18/24 17:23 Q6H PRN PAIN SCALE 1-3 (mild Insulin Glargine 15 unit 03/21/24 21:00 Insulin Glargine (Lantus) 5 Unit/0.05 Ml (Per 5 Units) SC 04/20/24 20:59 HS [facility] Insulin Human Lispro 2 unit 03/21/24 12:00 Insulin Lispro (Admelog) 1 Unit/0.01 Ml Unit SC 04/20/24 11:59 TIDWM NIXON Insulin Human Lispro 0 unit 03/21/24 08:49 Insulin Lispro (Admelog) 1 Unit/0.01 Ml Unit SC 04/19/24 07:29 ACHS [facility] Protocol Morphine Sulfate 5 mg 03/20/24 11:41 03/21/24 01:28 Morphine Sulf Inj 10 Mg/Ml Vial IVP 03/24/24 20:47 5 mg Q4HR PRN Administration PAIN SCALE 7-10 (Severe Nicotine 7 mg 03/19/24 17:45 03/21/24 09:24 Nicotine Patch 7 Mg/24 Hr Patch.Td24 TOP 04/18/24 17:44 7 mg QDAY NIXON Administration Ondansetron HCl 4 mg 03/19/24 20:48 Ondansetron Inj 2 Mg/Ml Inj 2 Ml IV 04/18/24 20:47 Q4HR PRN NAUSEA OR VOMITING Oxycodone/Acetaminophen 1 tab 03/19/24 17:24 03/21/24 09:24 Oxycodone/Apap 5/325 Tablet PO 03/24/24 17:23 1 tab Q6H PRN Administration PAIN SCALE 4-6 (Moderate Pantoprazole Sodium 40 mg 03/20/24 09:00 03/21/24 09:25 Pantoprazole Inj 40 Mg Vial IVP 04/19/24 08:59 40 mg QDAY NIXON Administration Polyethylene Glycol 17 gm 03/19/24 18:08 Polyethylene Glycol 17 Gm Packet PO 04/19/24 08:59 QDAY PRN CONSTIPATION Sennosides 1 tab 03/19/24 17:30 Senna Tablet PO 04/18/24 17:29 QDAY PRN constipation Protocol Plan Patient is a 39-year-old male with a past medical history of diabetes, diet- controlled presenting with buttock pain and swelling. Patient admitted for management of perianal abscess. #Bharati-rectal abscess #Significant cellulitis of buttock area Patient met 2 SIRS criteria on admission with white count of 34.2 and heart rate 102 Physical exam reveals erythema, tenderness, warmth of right and left buttock. CT abdomen pelvis shows large perianal infectious mass right left side proximally measuring 7.5 x 6.8 cm LRINEC Score [address] Guerrero from incision and drainage and debridement of necrotic tissue on 03/19 Wound packed with Kerlix and dressing applied. Blood cultures no growth for 24 hours Gram stain of wound shows some GPC Zosyn 4.5 g 4 times a day 03/19?01/18. DCed - Ceftriaxone 1 03/21- ?Doxycycline 100 mg twice daily 03/20? ?Maintenance fluids -Final abscess and anaerobic cultures still pending -Pain control medication with acetaminophen, oxycodone and morphine in place -UA and urine culture ordered in the emergency department, pending -Bowel regiment with senna and MiraLAX as needed ? Dr. Elizabeth performed incision and drainage as well as debridement of necrotic tissue, currently following. Appreciate recommendations ? Diabetic diet # Uncontrolled Diabetes Patient has a history of diabetes but does not follow-up with PCP. Patient states that he controls diabetes with diet. Glucose on presentation in ED 534 HbA1c 9.5 Given 10 units regular insulin in ED ?Lantus 15 units nightly, lispro 2 units 3 times daily with meals -Lispro via sliding scale, will adjust accordingly -Hypoglycemic protocol in place ?Bedside glucose checks every 6 hours Diet: Diabetic Diet GI: Pantoprazole DVT: SCDs, heparin Jett: None Lines: Peripheral Dispo: [facility] Rec: N/A Code: Full Patient seen and assessed with my attending physician Dr. Nixon and Dr. Debbie Topete D.O. PGY1 Anesthesiology Attending Provider Attestation/Addendum I have discussed and was present for the essential components of the history, physical examination, diagnosis, and treatment plan with the resident. I agree with the patient's care as documented by the resident and amended herein by me. Paul Nixon DO.
--- NOTE | 2024-03-21 10:59 | PC.SS ---
Patient Hemal Mcmahon is a 39 Year old male admitted for Perianal Abcess. SS met with patient at bedside to complete initial assessment. Patient reports he lives at home with his life partner, Monica Potter who he identifies as his surrogate decision maker [phone]. Patient does not utilize any source of DME to assist with ambulation. Pharmacy of choice is [facility]. Patient reports the last time he seen a PCP was about 3 years ago at [facility]. At time of discharge patient will return back home. Next of Kin: Life partner, Monica Potter [phone] Discharge Plan: Home
[2024-03-21] MEDS: INSULIN LISPRO (AdmeLOG) 1 UNIT/0.01 ML UNIT 2 UNIT SC ×2 (12:43→18:00)
[2024-03-21] MEDS: cefTRIAXone/D5w 1gm IV premix 50 ML IV (14:43)
--- NOTE | 2024-03-21 15:49 | PC.DIETICIAN ---
Dietitian consult: 1. Recommend add Vitamin C 500mg BID daily, zinc 220mg [id number], Multivitamin-Mineral daily to ensure adequate nutrient intake and promote wound healing. Pt was informed not to take Vitamin C if he eventually gets sensor placed on arm (it is contraindicated). 2. Pt requesting CGM although is unable to download helder correctly and is wants a reader. Recommend order Sarbjit 2 or 3 with reader Thank you
[2024-03-21] MEDS: ZINC GLUCONATE 50 MG TABLET PO (16:34)
[2024-03-21] MEDS: ASCORBIC ACID 250 MG TABLET 500 MG PO ×2 (16:35→21:13)
--- NOTE | 2024-03-21 18:17 | PC.NURSE ---
Continuing NS through the night per Dr Mead
[2024-03-21] MEDS: INSULIN GLARGINE (Lantus) 5 UNIT/0.05 ML (PER 5 UNITS) 15 UNIT SC (21:14)
[2024-03-22] VITALS (12 sets, daily range): BP systolic 124–156; BP diastolic 74–90; PULSE 66–89; RESP 16–100; TEMP 36.1–36.9; O2SAT 98–99
[2024-03-22] MEDS: SENNA TABLET 1 TAB PO (05:33)
[2024-03-22 05:49] LABS: Basophils # (Auto) 0.1 Thou/mm3 (0.0-0.2); Basophils % (Auto) 0 % (0-2.5); Eosinophils # (Auto) 0.1 Thou/mm3 (0.0-0.5); Eosinophils % (Auto) 0 % (0-10); Hematocrit 33.9 % (41.0-53.0); Hemoglobin 11.7 g/dL (13.5-16.0); Immature Granulocytes % (Auto) 2 % (0-0); Immature Granulocytes Auto 0.37 Thou/mm3 (0.00-0.00); Lymphocytes # (Auto) 2.6 Thou/mm3 (1.0-4.8); Lymphocytes % (Auto) 16 % (10-50); Mean Corpuscular HGB Conc 34.5 g/dl (31.0-37.0); Mean Corpuscular Hemoglobin 30.4 pg (25.0-35.0); Mean Corpuscular Volume 88 fL (80-100); Monocytes # (Auto) 0.9 Thou/mm3 (0.0-0.8); Monocytes % (Auto) 6 % (0-12); Neutrophils # (Auto) 11.7 Thou/mm3 (1.8-7.7); Neutrophils % (Auto) 75 % (37-80); Nucleated Red Blood Cell % 0 /100 WBC (0); Platelet Count 510 Thou/mm3 (140-440); RDW Standard Deviation 39.5 fL (35.1-43.9); Red Blood Count 3.85 Miln/mm3 (4.50-5.90); White Blood Count 15.6 Thou/mm3 (3.8-10.6)
[2024-03-22 06:52] LABS: Alanine Aminotransferase 134 U/L (10-49); Albumin, Serum 3.8 gm/dL (3.5-5.0); Albumin/Globulin Ratio 1.1 (1.2-2.2); Alkaline Phosphatase 228 U/L (46-116); Anion Gap 9 (7-16); Aspartate Amino Transferase 91 U/L (0-34); BUN/Creatinine Ratio 11 Ratio (12-20); Bilirubin,Total 0.5 mg/dL (0.3-1.2); Blood Urea Nitrogen 9 mg/dL (9-23); Calcium 8.9 mg/dL (8.3-10.6); Calcium (Corrected) 9.1 mg/dL (8.5-10.1); Carbon Dioxide 26.8 mMol/L (20.0-31.0); Chloride 99 mMol/L (98-107); Creatinine (Component) 0.8 mg/dL (0.6-1.3); Estimated Creatinine Clearance 138.4 mL/min (>60); Globulin 3.5 gm/dL (2.3-3.5); Glucose 161 mg/dL (74-106); Magnesium 2.2 mg/dL (1.6-2.6); Osmolality,Calculated 271 (275-295); Phosphorous 3.2 mg/dL (2.4-5.1); Potassium 3.8 mMol/L (3.4-5.1); Sodium 135 mMol/L (136-145); Total Protein 7.3 gm/dL (5.7-8.2); eGFR > 60 See Note
[2024-03-22] MEDS: INSULIN LISPRO (AdmeLOG) 1 UNIT/0.01 ML UNIT 2 UNIT SC (07:25)
[2024-03-22] MEDS: INSULIN LISPRO (AdmeLOG) 1 UNIT/0.01 ML UNIT SC ×4 (07:26→21:12)
[2024-03-22] MEDS: ZINC GLUCONATE 50 MG TABLET PO (08:05)
[2024-03-22] MEDS: ASCORBIC ACID 250 MG TABLET 500 MG PO ×2 (08:05→20:53)
[2024-03-22] MEDS: PANTOPRAZOLE INJ 40 MG VIAL IVP (08:05)
[2024-03-22] MEDS: cefTRIAXone/D5w 1gm IV premix 50 ML IV (08:06)
[2024-03-22] MEDS: HEPARIN SOD INJ 5000 UNIT/ML VIAL SC ×2 (08:07→20:54)
[2024-03-22] MEDS: DOXYCYCLINE INJ 100 MG in SODIUM CHLORIDE 0.9% (P) 100 ML IV ×2 (08:17→20:51)
--- NOTE | 2024-03-22 09:58 | PD.SURPROG ---
Documentation for date of: 03/22/24 Subjective Subjective Brief History: History of present illness that the patient has been a diabetic and has been taking metformin about 4 days ago he noticed some redness. Patient has been started draining today therefore he came to the emergency room. He does have some pain but not unbearable discomfort. He also had a fever. He has not had any major infection in the past Narrative: The patient's wound was inspected yesterday at the bedside. There is no more necrotic tissue but some exudate as a result of large perirectal abscess. This could be dressed with wound care nurse using Santyl. Patient's WBC is down to 15,000 and we shall continue IV antibiotics for another couple of days and discharge him with a home health nurse Exam Vital Signs Temp Pulse Resp BP Pulse Ox O2 Del Method O2 Flow Rate 96.9 F 78 18 135/77 H 98 Room Air 10 03/22/24 08:00 03/22/24 08:00 03/22/24 08:00 03/22/24 08:00 03/22/24 08:00 03/22/24 08:00 03/19/24 19:48 Procedures Procedures Incision and drainage of the perirectal abscess with extensive debridement of the necrotic tissue
--- NOTE | 2024-03-22 10:33 | ESPR_ITS ---
<Statement entered by Mynor Prado MD - 03/22/24 14:05> Patient was seen and examined at the bedside this morning. Patient is postop day 2 post I&D and surgery recommended to continue IV antibiotic therapy with ceftriaxone and doxycycline and monitor until white count improves. Insulin was adjusted as his blood sugars were elevated this morning. Lantus 20 units and 5 units daily with meals. Patient will need home health for wound care. All labs and orders were reviewed. I saw and examined the patient, and I agree with current management stated by Dr Jose D MD,PGY1. Plan of care was discussed with the attending physician and resident physician. Disclaimer: Despite multiple revisions, due to the dictation software being used, the document bellow may not be free of grammatical errors including phonetic/typographic errors. However, this does not deter from our commitment to providing health care in the patient's best interest in mind. Dr. Johan MD, PGY 2 Documentation for date of: 03/22/24 Subjective Subjective Interval history: 03/22: No acute events overnight. VSS. WBCs decreased from 20.3 to 15.6. Electrolytes appear stable. Blood sugars still high, 210s/220s today. AST and ALT slightly elevated this AM, no abdominal pain, T bili 0.5. Pt denies any new symptoms, states that the pain appears to be going down. Packing in place and now new erythema, purulent drainage noted on physical exam. Abscess culture, anaerobic cx, urine cx, blood cx negative. Spoke to Dr. Elizabeth, recommends to continue abx for 1-2 days and allow WBC count to downtrend as this is a severe, necrotic, polymicrobial infection that required extensive debridement. Patient will need extensive wound care upon discharge. Adjusting insulin regimen. Exam Vital Signs Temp Pulse Resp BP Pulse Ox O2 Del Method O2 Flow Rate 96.9 F 78 18 135/77 H 98 Room Air 10 03/22/24 08:00 03/22/24 08:00 03/22/24 08:00 03/22/24 08:00 03/22/24 08:00 03/22/24 08:00 03/19/24 19:48 Narrative Exam GENERAL: Patient appears to be moderate distress, NC/AT, responsive/cooperative. A&Ox3 NEURO: face cleaner grossly intact, moves extremities x4 HEENT: Moist mucosa. Eyes open, symmetrical, & clear CARDIO: No chest pain on palpation. Heart RRR, no obvious murmurs PULM: No noted coughing/dyspnea. Lungs CTA B/L, no R/W/R GI: Abdomen soft, nondistended, no pain on palpation. BSx4. 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 SKIN/MSK/EXT: Buttock wound packed with Kerlix and dressing in place. Site of packing appears clean dry and intact. No purulent drainage noted on pressure. Pedal pulses present B/L Objective Labs 03/22/24 05:24 03/22/24 05:24 Labs: Laboratory Results - last 24 hr 03/22/24 05:24 WBC 15.6 H RBC 3.85 L Hgb 11.7 L Hct 33.9 L MCV 88 MCH 30.4 MCHC 34.5 RDW Std Deviation 39.5 Plt Count 510 H D Neut % (Auto) 75 Lymph % (Auto) 16 [place] % (Auto) 6 Eos % (Auto) 0 Baso % (Auto) 0 Neut # (Auto) 11.7 H Lymph # (Auto) 2.6 [place] # (Auto) 0.9 H Eos # (Auto) 0.1 Baso # (Auto) 0.1 Immature Gran # (Auto) 0.37 H Absolute Nucleated RBC 0.00 Immature Gran % 2 H Nucleated RBC % 0 Sodium 135 L Potassium 3.8 D Chloride 99 Carbon Dioxide 26.8 Anion Gap 9 BUN 9 Creatinine 0.8 Estim Creat Clear Calc 138.4 eGFR > 60 BUN/Creatinine Ratio 11 L Glucose 161 H D Calculated Osmolality 271 L Calcium 8.9 Corrected Calcium 9.1 Phosphorus 3.2 Magnesium 2.2 Total Bilirubin 0.5 AST 91 H ALT 134 H Alkaline Phosphatase 228 H D Total Protein 7.3 Albumin 3.8 Globulin 3.5 Albumin/Globulin Ratio 1.1 L Quality Measures Quality Measures none Assessment & Plan Assessment Current Active Medications: Generic Name Dose Route Start Last Admin Trade Name Freq PRN Reason Stop Dose Admin Ascorbic Acid 500 mg 03/21/24 16:05 03/22/24 08:05 Ascorbic Acid 250 Mg Tablet PO 04/20/24 16:04 500 mg BID NIXON Administration Dextrose 25 ml 03/19/24 17:39 Dextrose 50%-Water Inj 50 Ml Syringe IV 04/18/24 17:38 Q15MIN PRN BG 50-70 responsive npo pt Dextrose 50 ml 03/19/24 17:39 Dextrose 50%-Water Inj 50 Ml Syringe IV 04/18/24 17:38 Q15MIN PRN BG <50 OR BG <70 & pt unresponsive Glucagon 1 mg 03/19/24 17:39 Glucagon Inj 1 Mg Vial IM Q15MIN PRN BG <70, and no IV access Heparin Sodium (Porcine) 5,000 unit 03/20/24 09:00 03/22/24 08:07 Heparin Sod Inj 5000 Unit/Ml Vial SC 04/03/24 08:59 5,000 unit BID NIXON Administration Sodium Chloride 1,000 mls @ 100 mls/hr 03/19/24 18:27 03/21/24 20:59 Ns IV 04/18/24 18:26 100 mls/hr .Q10H NIXON Administration Doxycycline Hyclate 100 mg/ 100 mls @ 100 mls/hr 03/20/24 10:30 03/22/24 08:17 Sodium Chloride IV 03/27/24 10:29 100 mls/hr BID NIXON Administration Ceftriaxone Sodium/Dextrose 50 mls @ 100 mls/hr 03/21/24 14:00 03/22/24 08:06 Rocephin/D5w 1gm Iv Premix IV 03/28/24 13:59 100 mls/hr QDAY NIXON Administration Ibuprofen 400 mg 03/22/24 10:03 Ibuprofen Tab 400 Mg Tablet PO 04/21/24 10:02 Q6HR PRN PAIN(1-3) OR FEVER > 101 Insulin Glargine 20 unit 03/22/24 21:00 Insulin Glargine (Lantus) 5 Unit/0.05 Ml (Per 5 Units) SC 04/21/24 20:59 HS [facility] Insulin Human Lispro 0 unit 03/21/24 08:49 03/22/24 07:26 Insulin Lispro (Admelog) 1 Unit/0.01 Ml Unit SC 04/19/24 07:29 8 unit ACHS [facility] Administration Protocol Insulin Human Lispro 5 unit 03/22/24 12:00 Insulin Lispro (Admelog) 1 Unit/0.01 Ml Unit SC 04/21/24 11:59 TIDWM [facility] Morphine Sulfate 5 mg 03/20/24 11:41 03/21/24 19:22 Morphine Sulf Inj 10 Mg/Ml Vial IVP 03/24/24 20:47 5 mg Q4HR PRN Administration PAIN SCALE 7-10 (Severe Nicotine 7 mg 03/19/24 17:45 03/22/24 08:22 Nicotine Patch 7 Mg/24 Hr Patch.Td24 TOP 04/18/24 17:44 Not Given QDAY NIXON Ondansetron HCl 4 mg 03/19/24 20:48 Ondansetron Inj 2 Mg/Ml Inj 2 Ml IV 04/18/24 20:47 Q4HR PRN NAUSEA OR VOMITING Oxycodone/Acetaminophen 1 tab 03/19/24 17:24 03/21/24 09:24 Oxycodone/Apap 5/325 Tablet PO 03/24/24 17:23 1 tab Q6H PRN Administration PAIN SCALE 4-6 (Moderate Pantoprazole Sodium 40 mg 03/20/24 09:00 03/22/24 08:05 Pantoprazole Inj 40 Mg Vial IVP 04/19/24 08:59 40 mg QDAY NIXON Administration Polyethylene Glycol 17 gm 03/19/24 18:08 Polyethylene Glycol 17 Gm Packet PO 04/19/24 08:59 QDAY PRN CONSTIPATION Sennosides 1 tab 03/19/24 17:30 03/22/24 05:33 Senna Tablet PO 04/18/24 17:29 1 tab QDAY PRN Administration constipation Protocol Zinc Gluconate 50 mg 03/21/24 16:15 03/22/24 08:05 Zinc Gluconate 50 Mg Tablet PO 04/20/24 16:14 50 mg QDAY NIXON Administration Plan Patient is a 39-year-old male with a past medical history of diabetes, diet- controlled presenting with buttock pain and swelling. Patient admitted for management of bharati-rectal abscess. #Bharati-rectal abscess #Significant cellulitis of buttock area Patient met 2 SIRS criteria on admission with white count of 34.2 and heart rate 102 Physical exam reveals erythema, tenderness, warmth of right and left buttock. CT abdomen pelvis shows large perianal infectious mass right left side proximally measuring 7.5 x 6.8 cm LRINEC Score [address] ELIZABETH performed incision and drainage and debridement of necrotic tissue on 03/19 Wound packed with Kerlix and dressing applied. Blood cultures no growth for 48 hours Gram stain of wound shows some GPC Abscess, Anaerobic, Urine Cx (-) Zosyn 4.5 g 4 times a day 03/19?01/18. DCed - Ceftriaxone 1 03/21- ?Doxycycline 100 mg twice daily 03/20? ?Maintenance fluids -Pain control medication with acetaminophen, oxycodone and morphine in place -Bowel regiment with senna and MiraLAX as needed ? Dr. Elizabeth performed incision and drainage as well as debridement of necrotic tissue, currently following. Appreciate recommendations ? Diabetic diet # Uncontrolled Diabetes Patient has a history of diabetes but does not follow-up with PCP. Patient states that he controls diabetes with diet. Glucose on presentation in ED 534 HbA1c 9.8 Given 10 units regular insulin in ED ?Lantus 20 units nightly, lispro 5 units 3 times daily with meals -Lispro via sliding scale, will adjust accordingly -Hypoglycemic protocol in place ?Bedside glucose checks every 6 hours Diet: Diabetic Diet GI: Pantoprazole DVT: SCDs, heparin Jett: None Lines: Peripheral Dispo: MedSurg Med Rec: N/A Code: Full Patient seen and assessed with my attending physician Dr. Nixon and senior residents on service Jose D Topete D.O. PGY1 Anesthesiology Attending Provider Attestation/Addendum I have discussed and was present for the essential components of the history, physical examination, diagnosis, and treatment plan with the resident. I agree with the patient's care as documented by the resident and amended herein by me. Paul Nixon, . Patient seen and evaluated this AM. Vital signs stable, patient afebrile overnight, blood glucose elevated to 270 in the AM. WBC continues to downtrend approximately 15 today, all cultures negative thus far, will continue ceftriaxone and Doxy for now, wound care on board, appreciate general surgery recommendations. The patient will likely be discharged in the next 1 to 2 days pending surgery recommendations, patient will need wound care upon discharge, will plan for that the next day or so pending specialist recs. Although this document has been carefully reviewed, there may still be some phonetic and other typographical errors. These errors are purely grammatical due to imperfections in the software program and should not be construed in any way to compromise the substance of the patient's medical care during this visit.
[2024-03-22] MEDS: MORPHINE SULF INJ 10 MG/ML VIAL 5 MG IVP ×2 (10:34→19:51)
[2024-03-22] MEDS: INSULIN LISPRO (AdmeLOG) 1 UNIT/0.01 ML UNIT 5 UNIT SC ×2 (11:31→17:22)
[2024-03-22] MEDS: SODIUM CHLORIDE 0.9% 1000 ML 1,000 ML 100 ML IV (14:57)
[2024-03-22] MEDS: IBUPROFEN TAB 400 MG TABLET PO (15:00)
[2024-03-22] MEDS: INSULIN GLARGINE (Lantus) 5 UNIT/0.05 ML (PER 5 UNITS) 20 UNIT SC (21:11)
[2024-03-23] VITALS (8 sets, daily range): BP systolic 120–142; BP diastolic 71–92; PULSE 66–82; RESP 16–18; TEMP 36–36.7; O2SAT 97–99
[2024-03-23] MEDS: SODIUM CHLORIDE 0.9% 1000 ML 1,000 ML 100 ML IV ×2 (02:41→16:27)
[2024-03-23 06:07] LABS: Basophils # (Auto) 0.1 Thou/mm3 (0.0-0.2); Basophils % (Auto) 1 % (0-2.5); Eosinophils # (Auto) 0.1 Thou/mm3 (0.0-0.5); Eosinophils % (Auto) 1 % (0-10); Hematocrit 34.1 % (41.0-53.0); Hemoglobin 11.8 g/dL (13.5-16.0); Immature Granulocytes % (Auto) 3 % (0-0); Immature Granulocytes Auto 0.38 Thou/mm3 (0.00-0.00); Lymphocytes # (Auto) 2.8 Thou/mm3 (1.0-4.8); Lymphocytes % (Auto) 18 % (10-50); Mean Corpuscular HGB Conc 34.6 g/dl (31.0-37.0); Mean Corpuscular Hemoglobin 30.5 pg (25.0-35.0); Mean Corpuscular Volume 88 fL (80-100); Monocytes # (Auto) 0.8 Thou/mm3 (0.0-0.8); Monocytes % (Auto) 5 % (0-12); Neutrophils # (Auto) 11.2 Thou/mm3 (1.8-7.7); Neutrophils % (Auto) 73 % (37-80); Nucleated Red Blood Cell # 0.02 Thou/mm3 (0.00-0.00); Nucleated Red Blood Cell % 0 /100 WBC (0); Platelet Count 541 Thou/mm3 (140-440); RDW Standard Deviation 39.6 fL (35.1-43.9); Red Blood Count 3.87 Miln/mm3 (4.50-5.90); White Blood Count 15.3 Thou/mm3 (3.8-10.6)
[2024-03-23 06:36] LABS: Alanine Aminotransferase 151 U/L (10-49); Albumin, Serum 3.7 gm/dL (3.5-5.0); Alkaline Phosphatase 227 U/L (46-116); Anion Gap 10 (7-16); Aspartate Amino Transferase 76 U/L (0-34); BUN/Creatinine Ratio 11 Ratio (12-20); Bilirubin,Total 0.4 mg/dL (0.3-1.2); Blood Urea Nitrogen 8 mg/dL (9-23); Calcium 8.9 mg/dL (8.3-10.6); Calcium (Corrected) 9.1 mg/dL (8.5-10.1); Carbon Dioxide 27.3 mMol/L (20.0-31.0); Chloride 99 mMol/L (98-107); Creatinine (Component) 0.7 mg/dL (0.6-1.3); Estimated Creatinine Clearance 158.2 mL/min (>60); Globulin 3.6 gm/dL (2.3-3.5); Glucose 139 mg/dL (74-106); Magnesium 2.2 mg/dL (1.6-2.6); Osmolality,Calculated 272 (275-295); Phosphorous 3.8 mg/dL (2.4-5.1); Potassium 3.7 mMol/L (3.4-5.1); Sodium 136 mMol/L (136-145); Total Protein 7.3 gm/dL (5.7-8.2); eGFR > 60 See Note
[2024-03-23] MEDS: INSULIN LISPRO (AdmeLOG) 1 UNIT/0.01 ML UNIT SC ×4 (07:39→20:45)
[2024-03-23] MEDS: INSULIN LISPRO (AdmeLOG) 1 UNIT/0.01 ML UNIT 5 UNIT SC ×3 (07:40→17:08)
[2024-03-23] MEDS: PANTOPRAZOLE INJ 40 MG VIAL IVP (08:43)
[2024-03-23] MEDS: ZINC GLUCONATE 50 MG TABLET PO (08:44)
[2024-03-23] MEDS: HEPARIN SOD INJ 5000 UNIT/ML VIAL SC ×2 (08:44→20:31)
[2024-03-23] MEDS: ASCORBIC ACID 250 MG TABLET 500 MG PO ×2 (08:45→20:25)
[2024-03-23] MEDS: cefTRIAXone/D5w 1gm IV premix 50 ML IV (08:45)
[2024-03-23] MEDS: DOXYCYCLINE INJ 100 MG in SODIUM CHLORIDE 0.9% (P) 100 ML IV ×2 (09:57→20:26)
[2024-03-23] MEDS: MORPHINE SULF INJ 10 MG/ML VIAL 5 MG IVP ×3 (11:36→20:21)
--- NOTE | 2024-03-23 14:17 | ESPR_ITS ---
<Statement entered by Mynor Prado MD - 03/23/24 15:08> Patient was seen and examined at the bedside this morning. Patient reported that he has perianal pain however he is trying to avoid pain medications and trying to tolerate the pain. Surgery recommended to keep the patient on IV antibiotics ceftriaxone doxycycline with appropriate bowel regimen to avoid loose stools or constipation both. Will continue on Lantus 20 units for sugar control. WBC count improving. Rest of the labs unremarkable. All labs and orders were reviewed. I saw and examined the patient, and I agree with current management stated by Dr Jose D DO,PGY1. Plan of care was discussed with the attending physician and resident physician. Disclaimer: Despite multiple revisions, due to the dictation software being used, the document bellow may not be free of grammatical errors including phonetic/typographic errors. However, this does not deter from our commitment to providing health care in the patient's best interest in mind. Dr. Johan MD, PGY 2 Documentation for date of: 03/23/24 Subjective Subjective Interval history: 03/23: No acute events overnight. Patient denies any new symptoms. Vital signs stable this a.m. White count continues to stay high 15.3 from 15.6. Electrolytes normal, blood glucose this a.m. appears well-controlled. Nurse stated that yesterday upon packing change small purulent drainage noted. No deep pockets noted on exam today. On this a.m. exam packing is dry. Spoke to Dr. Elizabeth, would be ne[place] to continue at least another day of antibiotics and continue to trend white count. No bowel movement since admission. Adding on Colace 100 mg p.o. daily Exam Vital Signs Temp Pulse Resp BP Pulse Ox O2 Del Method O2 Flow Rate 98.0 F 74 16 130/75 97 Room Air 10 03/23/24 11:52 03/23/24 11:52 03/23/24 11:52 03/23/24 11:52 03/23/24 11:52 03/23/24 11:52 03/19/24 19:48 Narrative Exam GENERAL: Patient appears to be moderate distress, NC/AT, responsive/cooperative. 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 Eyes open, symmetrical, & clear CARDIO: No chest pain on palpation. Heart RRR, no obvious murmurs PULM: No noted coughing/dyspnea. Lungs CTA B/L, no R/W/R GI: Abdomen soft, nondistended, no pain on palpation. BSx4. 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 SKIN/MSK/EXT: Buttock wound packed with Kerlix and dressing in place. Site of packing appears clean dry and intact. No purulent drainage noted on pressure. Pedal pulses present B/L Objective Labs 03/23/24 05:08 03/23/24 05:08 Labs: Laboratory Results - last 24 hr 03/23/24 05:08 WBC 15.3 H RBC 3.87 L Hgb 11.8 L Hct 34.1 L MCV 88 MCH 30.5 MCHC 34.6 RDW Std Deviation 39.6 Plt Count 541 H D Neut % (Auto) 73 Lymph % (Auto) 18 [place] % (Auto) 5 Eos % (Auto) 1 Baso % (Auto) 1 Neut # (Auto) 11.2 H Lymph # (Auto) 2.8 [place] # (Auto) 0.8 Eos # (Auto) 0.1 Baso # (Auto) 0.1 Immature Gran # (Auto) 0.38 H Absolute Nucleated RBC 0.02 H Immature Gran % 3 H Nucleated RBC % 0 Sodium 136 Potassium 3.7 Chloride 99 Carbon Dioxide 27.3 Anion Gap 10 BUN 8 L Creatinine 0.7 Estim Creat Clear Calc 158.2 eGFR > 60 BUN/Creatinine Ratio 11 L Glucose 139 H Calculated Osmolality 272 L Calcium 8.9 Corrected Calcium 9.1 Phosphorus 3.8 Magnesium 2.2 Total Bilirubin 0.4 AST 76 H ALT 151 H Alkaline Phosphatase 227 H Total Protein 7.3 Albumin 3.7 Globulin 3.6 H Albumin/Globulin Ratio 1.0 L Quality Measures Quality Measures none Assessment & Plan Assessment Current Active Medications: Generic Name Dose Route Start Last Admin Trade Name Freq PRN Reason Stop Dose Admin Ascorbic Acid 500 mg 03/21/24 16:05 03/23/24 08:45 Ascorbic Acid 250 Mg Tablet PO 04/20/24 16:04 500 mg BID NIXON Administration Dextrose 25 ml 03/19/24 17:39 Dextrose 50%-Water Inj 50 Ml Syringe IV 04/18/24 17:38 Q15MIN PRN BG 50-70 responsive npo pt Dextrose 50 ml 03/19/24 17:39 Dextrose 50%-Water Inj 50 Ml Syringe IV 04/18/24 17:38 Q15MIN PRN BG <50 OR BG <70 & pt unresponsive Docusate Sodium 100 mg 03/23/24 10:15 03/23/24 11:12 Docusate Sod 100 Mg Capsule PO 04/22/24 10:14 Not Given QDAY [facility] Protocol Glucagon 1 mg 03/19/24 17:39 Glucagon Inj 1 Mg Vial IM Q15MIN PRN BG <70, and no IV access Heparin Sodium (Porcine) 5,000 unit 03/20/24 09:00 03/23/24 08:44 Heparin Sod Inj 5000 Unit/Ml Vial SC 04/03/24 08:59 5,000 unit BID NIXON Administration Sodium Chloride 1,000 mls @ 100 mls/hr 03/19/24 18:27 03/23/24 02:41 Ns IV 04/18/24 18:26 100 mls/hr .Q10H NIXON Administration Doxycycline Hyclate 100 mg/ 100 mls @ 100 mls/hr 03/20/24 10:30 03/23/24 09:57 Sodium Chloride IV 03/27/24 10:29 100 mls/hr BID NIXON Administration Ceftriaxone Sodium/Dextrose 50 mls @ 100 mls/hr 03/21/24 14:00 03/23/24 08:45 Rocephin/D5w 1gm Iv Premix IV 03/28/24 13:59 100 mls/hr QDAY NIXON Administration Ibuprofen 400 mg 03/22/24 10:03 03/22/24 15:00 Ibuprofen Tab 400 Mg Tablet PO 04/21/24 10:02 400 mg Q6HR PRN Administration PAIN(1-3) OR FEVER > 101 Insulin Glargine 20 unit 03/22/24 21:00 03/22/24 21:11 Insulin Glargine (Lantus) 5 Unit/0.05 Ml (Per 5 Units) SC 04/21/24 20:59 20 unit HS NIXON Administration Insulin Human Lispro 0 unit 03/21/24 08:49 03/23/24 11:35 Insulin Lispro (Admelog) 1 Unit/0.01 Ml Unit SC 04/19/24 07:29 4 unit ACHS NIXON Administration Protocol Insulin Human Lispro 5 unit 03/22/24 12:00 03/23/24 11:36 Insulin Lispro (Admelog) 1 Unit/0.01 Ml Unit SC 04/21/24 11:59 5 unit TIDWM NIXON Administration Morphine Sulfate 5 mg 03/20/24 11:41 03/23/24 11:36 Morphine Sulf Inj 10 Mg/Ml Vial IVP 03/24/24 20:47 5 mg Q4HR PRN Administration PAIN SCALE 7-10 (Severe Nicotine 7 mg 03/19/24 17:45 03/23/24 08:45 Nicotine Patch 7 Mg/24 Hr Patch.Td24 TOP 04/18/24 17:44 Not Given QDAY NIXON Ondansetron HCl 4 mg 03/19/24 20:48 Ondansetron Inj 2 Mg/Ml Inj 2 Ml IV 04/18/24 20:47 Q4HR PRN NAUSEA OR VOMITING Oxycodone/Acetaminophen 1 tab 03/19/24 17:24 03/21/24 09:24 Oxycodone/Apap 5/325 Tablet PO 03/24/24 17:23 1 tab Q6H PRN Administration PAIN SCALE 4-6 (Moderate Pantoprazole Sodium 40 mg 03/20/24 09:00 03/23/24 08:43 Pantoprazole Inj 40 Mg Vial IVP 04/19/24 08:59 40 mg QDAY NIXON Administration Polyethylene Glycol 17 gm 03/19/24 18:08 Polyethylene Glycol 17 Gm Packet PO 04/19/24 08:59 QDAY PRN CONSTIPATION Sennosides 1 tab 03/19/24 17:30 03/22/24 05:33 Senna Tablet PO 04/18/24 17:29 1 tab QDAY PRN Administration constipation Protocol Zinc Gluconate 50 mg 03/21/24 16:15 03/23/24 08:44 Zinc Gluconate 50 Mg Tablet PO 04/20/24 16:14 50 mg QDAY NIXON Administration Plan Patient is a 39-year-old male with a past medical history of diabetes, diet- controlled presenting with buttock pain and swelling. Patient admitted for management of bhraati-rectal abscess. #Bharati-rectal abscess #Significant cellulitis of buttock area Patient met 2 SIRS criteria on admission with white count of 34.2 and heart rate 102 Physical exam reveals erythema, tenderness, warmth of right and left buttock. CT abdomen pelvis shows large perianal infectious mass right left side proximally measuring 7.5 x 6.8 cm LRINEC Score [address] ELIZABETH performed incision and drainage and debridement of necrotic tissue on 03/19 Wound packed with Kerlix and dressing applied. Blood cultures no growth for 48 hours Gram stain of wound shows some GPC Abscess, Anaerobic, Urine Cx (-) Zosyn 4.5 g 4 times a day 03/19?01/18. 03/23: White count continues to remain high 15.3 - Ceftriaxone 1 03/21- ?Doxycycline 100 mg twice daily 03/20? ?Maintenance fluids -Pain control medication with acetaminophen, oxycodone and morphine in place -Bowel regiment with senna and MiraLAX as needed -Added Colace 100 mg p.o. daily ? Dr. Elizabeth performed incision and drainage as well as debridement of necrotic tissue, currently following. Appreciate recommendations ? Diabetic diet # Uncontrolled Diabetes Patient has a history of diabetes but does not follow-up with PCP. Patient states that he controls diabetes with diet. Glucose on presentation in ED 534 HbA1c 9.8 Given 10 units regular insulin in ED ?Lantus 20 units nightly, lispro 5 units 3 times daily with meals -Lispro via sliding scale, will adjust accordingly -Hypoglycemic protocol in place ?Bedside glucose checks every 6 hours Diet: Diabetic Diet GI: Pantoprazole DVT: SCDs, heparin Jett: None Lines: Peripheral Dispo: [facility] Rec: N/A Code: Full Patient seen and assessed with my attending physician Dr. Nixon and senior residents on service Jose D Topete D.O. PGY1 Anesthesiology Attending Provider Attestation/Addendum I have discussed and was present for the essential components of the history, physical examination, diagnosis, and treatment plan with the resident. I agree with the patient's care as documented by the resident and amended herein by me. Paul Nixon DO. Although this document has been carefully reviewed, there may still be some phonetic and other typographical errors. These errors are purely grammatical due to imperfections in the software program and should not be construed in any way to compromise the substance of the patient's medical care during this visit.
[2024-03-23] MEDS: INSULIN GLARGINE (Lantus) 5 UNIT/0.05 ML (PER 5 UNITS) 20 UNIT SC (20:45)
[2024-03-24] VITALS (8 sets, daily range): BP systolic 109–142; BP diastolic 65–85; PULSE 66–86; RESP 13–18; TEMP 36.2–36.5; O2SAT 95–98
[2024-03-24] MEDS: SODIUM CHLORIDE 0.9% 1000 ML 1,000 ML 100 ML IV (04:10)
[2024-03-24 06:07] LABS: Basophils # (Auto) 0.1 Thou/mm3 (0.0-0.2); Basophils % (Auto) 1 % (0-2.5); Eosinophils # (Auto) 0.1 Thou/mm3 (0.0-0.5); Eosinophils % (Auto) 1 % (0-10); Hematocrit 34.8 % (41.0-53.0); Hemoglobin 12.2 g/dL (13.5-16.0); Immature Granulocytes % (Auto) 2 % (0-0); Immature Granulocytes Auto 0.28 Thou/mm3 (0.00-0.00); Lymphocytes # (Auto) 3.1 Thou/mm3 (1.0-4.8); Lymphocytes % (Auto) 23 % (10-50); Mean Corpuscular HGB Conc 35.1 g/dl (31.0-37.0); Mean Corpuscular Hemoglobin 30.6 pg (25.0-35.0); Mean Corpuscular Volume 87 fL (80-100); Monocytes # (Auto) 0.8 Thou/mm3 (0.0-0.8); Monocytes % (Auto) 6 % (0-12); Neutrophils # (Auto) 9.3 Thou/mm3 (1.8-7.7); Neutrophils % (Auto) 68 % (37-80); Nucleated Red Blood Cell % 0 /100 WBC (0); Platelet Count 577 Thou/mm3 (140-440); RDW Standard Deviation 39.2 fL (35.1-43.9); Red Blood Count 3.99 Miln/mm3 (4.50-5.90); White Blood Count 13.8 Thou/mm3 (3.8-10.6)
[2024-03-24 06:46] LABS: Alanine Aminotransferase 157 U/L (10-49); Albumin, Serum 3.7 gm/dL (3.5-5.0); Albumin/Globulin Ratio 1.1 (1.2-2.2); Alkaline Phosphatase 269 U/L (46-116); Anion Gap 10 (7-16); Aspartate Amino Transferase 93 U/L (0-34); BUN/Creatinine Ratio 15 Ratio (12-20); Bilirubin,Total 0.4 mg/dL (0.3-1.2); Blood Urea Nitrogen 9 mg/dL (9-23); Calcium 8.9 mg/dL (8.3-10.6); Calcium (Corrected) 9.1 mg/dL (8.5-10.1); Carbon Dioxide 26.4 mMol/L (20.0-31.0); Chloride 102 mMol/L (98-107); Creatinine (Component) 0.6 mg/dL (0.6-1.3); Estimated Creatinine Clearance 184.5 mL/min (>60); Globulin 3.4 gm/dL (2.3-3.5); Glucose 112 mg/dL (74-106); Magnesium 1.9 mg/dL (1.6-2.6); Osmolality,Calculated 275 (275-295); Phosphorous 4.4 mg/dL (2.4-5.1); Potassium 3.3 mMol/L (3.4-5.1); Sodium 138 mMol/L (136-145); Total Protein 7.1 gm/dL (5.7-8.2); eGFR > 60 See Note
[2024-03-24] MEDS: INSULIN LISPRO (AdmeLOG) 1 UNIT/0.01 ML UNIT SC ×4 (07:30→20:35)
[2024-03-24] MEDS: INSULIN LISPRO (AdmeLOG) 1 UNIT/0.01 ML UNIT 5 UNIT SC ×3 (07:31→17:02)
[2024-03-24] MEDS: oxyCODONE/APAP 5/325 TABLET 1 TAB PO ×3 (07:31→21:39)
--- NOTE | 2024-03-24 08:45 | PC.SS ---
Addendum entered by Shraddha Pang 03/24/24 08:57: SS was informed by financial counselor that patient's income was to much to qualify for presumptive medi-mello. Original Note: SS contacted financial counselor Charla and she informed SS that patient denied applying for presumptive med-mello due to him not qualifying, however she reported that she sent off his referral so the medical worker can contact patient and assist him with applying for medi-mello. SS will schedule patient an appointment.
[2024-03-24] MEDS: DOXYCYCLINE INJ 100 MG in SODIUM CHLORIDE 0.9% (P) 100 ML IV ×2 (09:59→20:34)
[2024-03-24] MEDS: POTASSIUM CHLORIDE 20 mEq TABCR 40 MEQ PO (10:00)
[2024-03-24] MEDS: cefTRIAXone/D5w 1gm IV premix 50 ML IV (10:00)
[2024-03-24] MEDS: ZINC GLUCONATE 50 MG TABLET PO (10:00)
[2024-03-24] MEDS: PANTOPRAZOLE INJ 40 MG VIAL IVP (10:00)
[2024-03-24] MEDS: DOCUSATE SOD 100 MG CAPSULE PO (10:00)
[2024-03-24] MEDS: ASCORBIC ACID 250 MG TABLET 500 MG PO ×2 (10:00→20:34)
[2024-03-24] MEDS: HEPARIN SOD INJ 5000 UNIT/ML VIAL SC ×2 (10:00→20:35)
--- NOTE | 2024-03-24 13:33 | ESPR_ITS ---
<Statement entered by Mynor Prado MD - 03/24/24 18:52> Patient was seen and examined at the bedside this morning. Patient reported to have improvement in his pain however he required morphine 5 mg for his pain control. Patient is currently on ceftriaxone and doxycycline. Morphine was reduced to 2 mg and currently continuing on basal bolus regimen as blood sugars are tightly controlled. Electrolytes were repleted. Patient does not have insurance coverage therefore social workers are working on the process of insurance. Patient might not be able to get wound care as outpatient therefore will be given limited supplies from the hospital and anticipating discharge tomorrow. All labs and orders were reviewed. I saw and examined the patient, and I agree with current management stated by Dr Jose D MD,PGY1. Plan of care was discussed with the attending physician and resident physician. Disclaimer: Despite multiple revisions, due to the dictation software being used, the document bellow may not be free of grammatical errors including phonetic/typographic errors. However, this does not deter from our commitment to providing health care in the patient's best interest in mind. Dr. Johan MD, PGY 2 Documentation for date of: 03/24/24 Subjective Subjective Interval history: 03/24: No acute events overnight. Vital signs stable this a.m. WBC still elevated but decreased compared to yesterday. 13.8 from 15.3. Rest of CBC normal. CMP normal. Blood glucose normal this a.m. 1 large bowel movement last night. Patient states that his pain is still constant, however improved. patient does not have insurance, but will need extensive wound care and help with wound packing. Contacting social media designer for further options to be explored. It is extremely important for him to be able to have wound care services as the nature of this wound and infection is something that cannot be managed by himself alone. Exam Vital Signs Temp Pulse Resp BP Pulse Ox O2 Del Method O2 Flow Rate 97.2 F 82 18 140/71 H 95 Room Air 10 03/24/24 11:46 03/24/24 11:46 03/24/24 11:46 03/24/24 11:46 03/24/24 11:46 03/24/24 11:46 03/19/24 19:48 Narrative Exam GENERAL: Patient appears to be moderate distress, NC/AT, responsive/cooperative. 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 Eyes open, symmetrical, & clear CARDIO: No chest pain on palpation. Heart RRR, no obvious murmurs PULM: No noted coughing/dyspnea. Lungs CTA B/L, no R/W/R GI: Abdomen soft, nondistended, no pain on palpation. BSx4. 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 SKIN/MSK/EXT: Buttock wound packed with Kerlix and dressing in place. Site of packing appears clean dry and intact. No purulent drainage noted on pressure. Pedal pulses present B/L Objective Labs 03/24/24 04:45 03/24/24 04:45 Labs: Laboratory Results - last 24 hr 03/24/24 04:45 WBC 13.8 H RBC 3.99 L Hgb 12.2 L Hct 34.8 L MCV 87 MCH 30.6 MCHC 35.1 RDW Std Deviation 39.2 Plt Count 577 H D Neut % (Auto) 68 Lymph % (Auto) 23 [place] % (Auto) 6 Eos % (Auto) 1 Baso % (Auto) 1 Neut # (Auto) 9.3 H Lymph # (Auto) 3.1 [place] # (Auto) 0.8 Eos # (Auto) 0.1 Baso # (Auto) 0.1 Immature Gran # (Auto) 0.28 H Absolute Nucleated RBC 0.00 Immature Gran % 2 H Nucleated RBC % 0 Sodium 138 Potassium 3.3 L Chloride 102 Carbon Dioxide 26.4 Anion Gap 10 BUN 9 Creatinine 0.6 Estim Creat Clear Calc 184.5 eGFR > 60 BUN/Creatinine Ratio 15 Glucose 112 H Calculated Osmolality 275 Calcium 8.9 Corrected Calcium 9.1 Phosphorus 4.4 Magnesium 1.9 Total Bilirubin 0.4 AST 93 H ALT 157 H Alkaline Phosphatase 269 H D Total Protein 7.1 Albumin 3.7 Globulin 3.4 Albumin/Globulin Ratio 1.1 L Quality Measures Quality Measures none Assessment & Plan Assessment Current Active Medications: Generic Name Dose Route Start Last Admin Trade Name Freq PRN Reason Stop Dose Admin Ascorbic Acid 500 mg 03/21/24 16:05 03/24/24 10:00 Ascorbic Acid 250 Mg Tablet PO 04/20/24 16:04 500 mg BID NIXON Administration Dextrose 25 ml 03/19/24 17:39 Dextrose 50%-Water Inj 50 Ml Syringe IV 04/18/24 17:38 Q15MIN PRN BG 50-70 responsive npo pt Dextrose 50 ml 03/19/24 17:39 Dextrose 50%-Water Inj 50 Ml Syringe IV 04/18/24 17:38 Q15MIN PRN BG <50 OR BG <70 & pt unresponsive Docusate Sodium 100 mg 03/23/24 10:15 03/24/24 10:00 Docusate Sod 100 Mg Capsule PO 04/22/24 10:14 100 mg QDAY NIXON Administration Protocol Glucagon 1 mg 03/19/24 17:39 Glucagon Inj 1 Mg Vial IM Q15MIN PRN BG <70, and no IV access Heparin Sodium (Porcine) 5,000 unit 03/20/24 09:00 03/24/24 10:00 Heparin Sod Inj 5000 Unit/Ml Vial SC 04/03/24 08:59 5,000 unit BID NIXON Administration Sodium Chloride 1,000 mls @ 100 mls/hr 03/19/24 18:27 03/24/24 04:10 Ns IV 04/18/24 18:26 100 mls/hr .Q10H NIXON Administration Doxycycline Hyclate 100 mg/ 100 mls @ 100 mls/hr 03/20/24 10:30 03/24/24 09:59 Sodium Chloride IV 03/27/24 10:29 100 mls/hr BID NIXON Administration Ceftriaxone Sodium/Dextrose 50 mls @ 100 mls/hr 03/21/24 14:00 03/24/24 10:00 Rocephin/D5w 1gm Iv Premix IV 03/28/24 13:59 100 mls/hr QDAY NIXON Administration Ibuprofen 400 mg 03/22/24 10:03 03/22/24 15:00 Ibuprofen Tab 400 Mg Tablet PO 04/21/24 10:02 400 mg Q6HR PRN Administration PAIN(1-3) OR FEVER > 101 Insulin Glargine 20 unit 03/22/24 21:00 03/23/24 20:45 Insulin Glargine (Lantus) 5 Unit/0.05 Ml (Per 5 Units) SC 04/21/24 20:59 20 unit HS NIXON Administration Insulin Human Lispro 0 unit 03/21/24 08:49 03/24/24 12:05 Insulin Lispro (Admelog) 1 Unit/0.01 Ml Unit SC 04/19/24 07:29 8 unit ACHS NIXON Administration Protocol Insulin Human Lispro 5 unit 03/22/24 12:00 03/24/24 12:05 Insulin Lispro (Admelog) 1 Unit/0.01 Ml Unit SC 04/21/24 11:59 5 unit TIDWM NIXON Administration Morphine Sulfate 2 mg 03/24/24 10:07 Morphine Sulf Inj 10 Mg/Ml Vial IVP 03/24/24 20:47 Q4HR PRN PAIN SCALE 7-10 (Severe Nicotine 7 mg 03/19/24 17:45 03/24/24 09:15 Nicotine Patch 7 Mg/24 Hr Patch.Td24 TOP 04/18/24 17:44 Not Given QDAY NIXON Ondansetron HCl 4 mg 03/19/24 20:48 Ondansetron Inj 2 Mg/Ml Inj 2 Ml IV 04/18/24 20:47 Q4HR PRN NAUSEA OR VOMITING Oxycodone/Acetaminophen 1 tab 03/19/24 17:24 03/24/24 07:31 Oxycodone/Apap 5/325 Tablet PO 03/24/24 17:23 1 tab Q6H PRN Administration PAIN SCALE 4-6 (Moderate Pantoprazole Sodium 40 mg 03/20/24 09:00 03/24/24 10:00 Pantoprazole Inj 40 Mg Vial IVP 04/19/24 08:59 40 mg QDAY NIXON Administration Polyethylene Glycol 17 gm 03/19/24 18:08 Polyethylene Glycol 17 Gm Packet PO 04/19/24 08:59 QDAY PRN CONSTIPATION Sennosides 1 tab 03/19/24 17:30 03/22/24 05:33 Senna Tablet PO 04/18/24 17:29 1 tab QDAY PRN Administration constipation Protocol Zinc Gluconate 50 mg 03/21/24 16:15 03/24/24 10:00 Zinc Gluconate 50 Mg Tablet PO 04/20/24 16:14 50 mg QDAY [facility] Administration Plan Patient is a 39-year-old male with a past medical history of diabetes, diet- controlled presenting with buttock pain and swelling. Patient admitted for management of bharati-rectal abscess. #Bharati-rectal abscess #Significant cellulitis of buttock area Patient met 2 SIRS criteria on admission with white count of 34.2 and heart rate 102 Physical exam reveals erythema, tenderness, warmth of right and left buttock. CT abdomen pelvis shows large perianal infectious mass right left side proximally measuring 7.5 x 6.8 cm LRINEC Score [address] ELIZABETH performed incision and drainage and debridement of necrotic tissue on 03/19 Wound packed with Kerlix and dressing applied. Blood cultures no growth for 48 hours Gram stain of wound shows some GPC Abscess, Anaerobic, Urine Cx (-) Zosyn 4.5 g 4 times a day 03/19?01/18. 03/23: White count continues to remain high 15.3 03/24: White count is downtrending, however still elevated this a.m. - Ceftriaxone 1 03/21- ?Doxycycline 100 mg twice daily 03/20? ?Maintenance fluids -Pain control medication with acetaminophen, oxycodone and morphine in place -Bowel regiment with senna and MiraLAX as needed -Added Colace 100 mg p.o. daily ? Dr. Elizabeth performed incision and drainage as well as debridement of necrotic tissue, currently following. Appreciate recommendations ? Diabetic diet # Uncontrolled Diabetes Patient has a history of diabetes but does not follow-up with PCP. Patient states that he controls diabetes with diet. Glucose on presentation in ED 534 HbA1c 9.8 Given 10 units regular insulin in ED ?Lantus 20 units nightly, lispro 5 units 3 times daily with meals -Lispro via sliding scale, will adjust accordingly -Hypoglycemic protocol in place ?Bedside glucose checks every 6 hours Diet: Diabetic Diet GI: Pantoprazole DVT: SCDs, heparin Jett: None Lines: Peripheral Dispo: [place] [facility] Rec: N/A Code: Full Patient seen and assessed with my attending physician Dr. Platt and senior residents on service Jose D Topete D.O. PGY1 Anesthesiology Attending Provider Attestation/Addendum I attest that I was physically present for the evaluation, physical examination, lab and imaging review of the patient with the residents. I discussed the case with the residents and agree with the findings and plans of care as documented above. At bedside today, patient is states that his perineal pain has been improving compared to presentation.? WBC count has been improving.? Vital signs are stable.? Patient will need outpatient wound care. Has been on IV morphine and oxycodone for pain control.? We will plan for discharge once patient?s pain is controlled with oral analgesics. Felicitas Platt MD
--- NOTE | 2024-03-24 15:30 | PC.NURSE ---
Dr. Elizabeth came to see patient at bedside. Completed wound dressing change with Glenn present.
--- NOTE | 2024-03-24 15:34 | PD.SURPROG ---
Documentation for date of: 03/24/24 Subjective Subjective Brief History: History of present illness that the patient has been a diabetic and has been taking metformin about 4 days ago he noticed some redness. Patient has been started draining today therefore he came to the emergency room. He does have some pain but not unbearable discomfort. He also had a fever. He has not had any major infection in the past Narrative: The patient's wound was inspected during the dressing change there is no further necrosis except edges of the skin. There is some exudate obviously from this abscess Exam Vital Signs Temp Pulse Resp BP Pulse Ox O2 Del Method O2 Flow Rate 97.2 F 82 18 140/71 H 95 Room Air 10 03/24/24 11:46 03/24/24 11:46 03/24/24 11:46 03/24/24 11:46 03/24/24 11:46 03/24/24 11:46 03/19/24 19:48 Results Results: Laboratory Laboratory Narrative: Patient's laboratory workup shows WBC down to 13,500 Assessment & Plan Assessment Additional comments: Impression steady recovery following debridement of necrotic tissue left buttock Plan Plan: Patient could be discharged in a day or 2 and sent to wound clinic or home health care nurse follow-up. Procedures Procedures Incision and drainage of the perirectal abscess with extensive debridement of the necrotic tissue
[2024-03-24] MEDS: INSULIN GLARGINE (Lantus) 5 UNIT/0.05 ML (PER 5 UNITS) 20 UNIT SC (20:35)
[2024-03-25] VITALS: BP 112/67; PULSE 78; RESP 19; TEMP 36.7; O2SAT 99
[2024-03-25 04:00] VITALS: BP 107/64; PULSE 71; PULSE 75; RESP 14; TEMP 36.5; O2SAT 99
[2024-03-25] MEDS: oxyCODONE/APAP 5/325 TABLET 1 TAB PO ×2 (04:58→12:45)
[2024-03-25 05:57] LABS: Basophils # (Auto) 0.1 Thou/mm3 (0.0-0.2); Basophils % (Auto) 1 % (0-2.5); Eosinophils # (Auto) 0.2 Thou/mm3 (0.0-0.5); Eosinophils % (Auto) 1 % (0-10); Hematocrit 37.3 % (41.0-53.0); Hemoglobin 12.8 g/dL (13.5-16.0); Immature Granulocytes % (Auto) 2 % (0-0); Immature Granulocytes Auto 0.29 Thou/mm3 (0.00-0.00); Lymphocytes # (Auto) 3.3 Thou/mm3 (1.0-4.8); Lymphocytes % (Auto) 27 % (10-50); Mean Corpuscular HGB Conc 34.3 g/dl (31.0-37.0); Mean Corpuscular Hemoglobin 30.5 pg (25.0-35.0); Mean Corpuscular Volume 89 fL (80-100); Monocytes # (Auto) 0.6 Thou/mm3 (0.0-0.8); Monocytes % (Auto) 4 % (0-12); Neutrophils # (Auto) 8.1 Thou/mm3 (1.8-7.7); Neutrophils % (Auto) 65 % (37-80); Nucleated Red Blood Cell % 0 /100 WBC (0); Platelet Count 554 Thou/mm3 (140-440); RDW Standard Deviation 40.1 fL (35.1-43.9); White Blood Count 12.6 Thou/mm3 (3.8-10.6)
[2024-03-25 06:37] LABS: Alanine Aminotransferase 117 U/L (10-49); Alkaline Phosphatase 235 U/L (46-116); Anion Gap 10 (7-16); Aspartate Amino Transferase 36 U/L (0-34); BUN/Creatinine Ratio 15 Ratio (12-20); Bilirubin,Total 0.4 mg/dL (0.3-1.2); Blood Urea Nitrogen 12 mg/dL (9-23); Calcium 9.4 mg/dL (8.3-10.6); Calcium (Corrected) 9.4 mg/dL (8.5-10.1); Carbon Dioxide 28.5 mMol/L (20.0-31.0); Chloride 102 mMol/L (98-107); Creatinine (Component) 0.8 mg/dL (0.6-1.3); Estimated Creatinine Clearance 138.4 mL/min (>60); Globulin 3.9 gm/dL (2.3-3.5); Glucose 132 mg/dL (74-106); Magnesium 2.1 mg/dL (1.6-2.6); Osmolality,Calculated 281 (275-295); Phosphorous 4.4 mg/dL (2.4-5.1); Potassium 3.8 mMol/L (3.4-5.1); Sodium 140 mMol/L (136-145); Total Protein 7.9 gm/dL (5.7-8.2); eGFR > 60 See Note
[2024-03-25] MEDS: INSULIN LISPRO (AdmeLOG) 1 UNIT/0.01 ML UNIT SC ×2 (07:46→12:43)
[2024-03-25] MEDS: INSULIN LISPRO (AdmeLOG) 1 UNIT/0.01 ML UNIT 5 UNIT SC ×2 (07:46→12:44)
[2024-03-25 08:00] VITALS: BP 132/85; PULSE 80; PULSE 82; RESP 17; TEMP 36.3; O2SAT 99
--- NOTE | 2024-03-25 09:16 | PC.SS ---
SS follow up note; Patient has an appointment at the [facility] on March 29 at 9:30AM. Patient is pending surgery clearance for discharge.
[2024-03-25] MEDS: ZINC GLUCONATE 50 MG TABLET PO (09:55)
[2024-03-25] MEDS: PANTOPRAZOLE INJ 40 MG VIAL IVP (09:55)
[2024-03-25] MEDS: HEPARIN SOD INJ 5000 UNIT/ML VIAL SC (09:55)
[2024-03-25] MEDS: DOXYCYCLINE INJ 100 MG in SODIUM CHLORIDE 0.9% (P) 100 ML IV (09:55)
[2024-03-25] MEDS: DOCUSATE SOD 100 MG CAPSULE PO (09:56)
[2024-03-25] MEDS: ASCORBIC ACID 250 MG TABLET 500 MG PO (09:56)
[2024-03-25] MEDS: POTASSIUM CHLORIDE 20 mEq TABCR PO (09:56)
[2024-03-25] MEDS: cefTRIAXone/D5w 1gm IV premix 50 ML IV (09:56)
[2024-03-25 12:00] VITALS: BP 129/78; PULSE 80; PULSE 82; RESP 15; TEMP 35.6; O2SAT 99
--- NOTE | 2024-03-25 14:04 | ESDS_ITS ---
<Statement entered by Mynor Prado MD - 03/25/24 14:14> I saw and examined the patient, and I agree with current management stated by Dr Tristen MD,PGY1. Plan of care was discussed with the attending physician and resident physician. Disclaimer: Despite multiple revisions, due to the dictation software being used, the document bellow may not be free of grammatical errors including phonetic/typographic errors. However, this does not deter from our commitment to providing health care in the patient's best interest in mind. Dr. Johan MD, PGY 2 Planned Discharge Date 03/25/24 DS: Providers Provider Date of admission: 03/19/24 17:19 Primary care physician: Physician No Primary/Family Admitting Provider: Rodney Nixon DO Attending Provider on Admission: Felicitas Platt MD Consults: 03/19/24 13:53 Consult to General Surgery Stat Comment: Gluteal abscess Consulting Provider: Isabella Garcia 03/19/24 17:41 Referral Registered Dietitian Routine Comment: Referral Registered Dietitian Routine Comment: 03/19/24 18:47 Referral Wound Care Stat Comment: Attending Provider on DC: Agnes Ramon MD Discharging Provider: Agnes Ramon MD DS: Diagnosis Problem List Completed Was Problem List Reviewed/Reconciled?: Yes Hospital Course Hospital Course Hospital course: Summary: Patient is a 39-year-old male with a past medical history of diabetes mellitus type 2 on insulin depenent, diet-controlled presenting with buttock pain and swelling. Patient admitted for management of perianal abscess and will be discharged on antibiotics. ER Course: In the emergency department vitals were blood pressure 142/79, heart rate of 102, respiratory rate 18, temperature 98.5, saturating 100% on room air. White count elevated at 34.2, sodium 125 (corrected 132). Glucose 534, HbA1c 9.8, lactic acid 3.5, C-reactive protein 32.7, Pro-Venkatesh slightly elevated at 0.53. CT abdomen pelvis shows large perianal infectious mass, right primarily posterior and left-sided measuring at least 7.[address] Elizabeth consulted from the emergency department and states that he will perform incision and drainage. Patient given 2 L NS, Zosyn, vancomycin, 10 units insulin. Hospitilization: Hospitalist, patient will follow Dr. Mason, an incision and drain admitted of gluteus dorina and area. perirectal it was noted to have necrotic tissue status post 03/19/2024. Patient was started on antibiotics, broad-spectrum. Pain management added. Blood culture negative. Patient's wound culture had no growth. CT abdomen pelvis showed large perianal infection mass, right proximal posterior and left-sided measuring at least 7.5 x 6.8 cm. Patient's WBC has continued to downtrend. Patient declined subacute placement. Patient recommended to go home with antibiotics and follow-up with wound care. Instructions: Please continue Cephalexin 750 mg twice a day and Doxycycline 100 mg twice a day for the next 20 days to complete 2 weeks of antibiotics Please take ascorbic acid and zinc for improved wound healing 500 mg once a day for 30 days topical Dakin's solution twice a day for wound Please follow up with wound care as an outpatient Please take Tresiba 20 units at night for diabetics mellitus please take metformin 500 mg twice a day for diabetic mellitus blood glucose target for morning 80-130 and keep glucose after meals under 200 take the rest of medication and prescribed -Please follow up with your primary care provider within one week of discharge -If your symptoms worsen,please seek immediate medical attention and return to your nearest emergency room -If you do not have a primary care provider, you may follow up at the [facility] at [address] [place] [address] [address], [place] [address], #Bharati-recal Abscess #Soft Tissue Cellutitis of buttocks #Sepsis, bharati-rectal abscess, resolved. #Hyperglycemia, improved. #Diabetes mellitus type 2- insulin dependent - The patient's plan was discussed with attending Dr. Platt and senior residents Dr. Johan Ramon MD PGY1 Internal Medicine Time Spent with Patient Time attestation: Total time spent providing and/or coordinating discharge services: at least 35 minutes of care and coordination. Exam Vital Signs Temp Pulse Resp BP Pulse Ox O2 Del Method O2 Flow Rate 97.4 F 82 17 132/85 H 99 Room Air 10 03/25/24 08:00 03/25/24 08:00 03/25/24 08:00 03/25/24 08:00 03/25/24 08:00 03/25/24 08:00 03/25/24 04:00 Narrative Exam General Appearance: Alert & Oriented X3, well-nourished male who is lying in bed in no acute distress. Lesion packed and site appears clean. No purulent draiange. HEENT: Skull symmetrical and atraumatic. Conjunctivae pin and moist. Pupils equal, round, reactive to light and accommodation (PERRL). External ear without lesion or discharge. Straight, nares patient, mucosa pink, no discharge. No thyroid nodule appreciated. No cervical lymphadenopathy. Cardio: Normal Rate and Rhythm with S1 and S2 heart sounds. No murmurs or extra heart sounds auscultated. No bruits on carotid auscultation. No peripheral edema or cyanosis. Lungs: Symmetric with good expansion. Chest and back non-tender. Breath sounds vesicular without crackles, wheezing or rhonchi Abdomen: Non-tender, Non-distended, Normal Reactive Bowel Sounds Neuro: Alert, cooperative, oriented to person, place, and time. Speech clear. CN grossly intact. Upper motor strength 5/5 and Lower motor strength 5/5. Sensation intact. Discharge Plan Plan Patient Disposition: Home w/HOME HEALTH Disposition Comment: stable Care Plan Goals: Instructions: Please continue Cephalexin 750 mg twice a day and Doxycycline 100 mg twice a day for the next 20 days to complete 2 weeks of antibiotics Please take ascorbic acid and zinc for improved wound healing 500 mg once a day for 30 days topical Dakin's solution twice a day for wound Please follow up with wound care as an outpatient Please take Tresiba 20 units at night for diabetics mellitus please take metformin 500 mg twice a day for diabetic mellitus blood glucose target for morning 80-130 and keep glucose after meals under 200 take the rest of medication and prescribed -Please follow up with your primary care provider within one week of discharge -If your symptoms worsen,please seek immediate medical attention and return to your nearest emergency room -If you do not have a primary care provider, you may follow up at the [facility] at [address], [place] [address], Prescriptions/Referrals Prescriptions/Med Rec: New ascorbic acid (vitamin C) 500 mg capsule 500 mg PO QDAY 30 Days Qty: 30 0RF zinc gluconate 50 mg tablet 50 mg PO QDAY Qty: 30 0RF (DME) FreeStyle Sarbjit 3 Plus Sensor Device See Rx Instructions .Route Qty: 1 0RF Rx Instructions: As directed (DME) FreeStyle Sarbjit 3 [place] Misc See Rx Instructions .Route Qty: 1 0RF Rx Instructions: As directed insulin degludec [Tresiba FlexTouch U-100] 100 unit/mL (3 mL) insulin pen 20 unit subcut HS Qty: 15 0RF metformin 500 mg tablet 500 mg PO BID Qty: 30 0RF Gvoke HypoPen 1-Pack 0.5 mg/0.1 mL auto-injector 0.5 mg subcut QDAY PRN (Reason: hypoglycemia) Qty: 0.1 0RF polyethylene glycol 3350 [Miralax] 17 gram/dose powder 17 g PO QDAY PRN (Reason: constipation) Qty: 119 0RF senna 8.6 mg capsule 8.6 mg PO QDAY PRN (Reason: constipation) Qty: 30 0RF cephalexin 750 mg capsule 750 mg PO BID 10 Days Qty: 20 0RF doxycycline monohydrate 100 mg capsule 100 mg PO BID 10 Days Qty: 20 0RF Dakin's Solution 0.125 % solution 1 applic topical BID Qty: 473 0RF (DME) pen needle, diabetic [Ultra-Thin II Ins Pen [place]] 29 gauge x 1/2 needle See Rx Instructions .Route Qty: 100 0RF Rx Instructions: As directed Referrals: No Primary/Family,Physician [Primary Care Provider] - Isabella Garcia MD [Physician] - Patient/Caregiver Discharge Instructions Other Discharge Activity Instructions:: Please follow-up with your primary care physician within 7 days of discharge Please request your PCP for follow up Liver panel on your next visit. If you do not have a primary care physician you can follow-up with [facility] at [address] [facility], [place] [address] Please ensure that you are wound packing and bandaging remains dry and intact. Please ensure that you keep your appointments with the wound care nurse It is extremely important for you overall health as well as wound healing to maintain appropriate blood sugar levels. Please take your new medications as directed. Please regularly check your blood glucose If your symptoms worsen or persist please return to the emergency department. Education Materials: Nutrition Facts Labels and Diabetes, Diabetes and Heart Disease, Managing Type 2 Diabetes, How to Check Your Blood Sugar, Diabetes Treating Minor Foot ..., Diabetes Treat Severe Foot Infecs, Oral Medicines for Type 2 Diabetes, Healthy Meals for Diabetes, Diabetes Exercise Get Started, Diabetes: Activity Tips, Managing Diabetes: The A1C Test, Diabetes Exercise Plan, Diabetes Tracking Your Fitness ..., Diabetes Carbs Fats Protein, Smoking and Diabetes, How Diabetes Can Affect ..., Type 2 Diabetes Print Language: Kazakh Stand Alone Forms: Debby Award Info., Patient Portal Info Letter Discharge Order Discharge Orders: Discharge (Routine); Ordered 03/25/24 Ordered By: Mynor Prado Quality Discharge Quality Measures VTE prophylaxis MD Attestestation MD Attestation I attest that I was physically present for the evaluation, physical examination, lab and imaging review of the patient with the residents. I discussed the case with the residents and agree with the findings and plans of care as documented above. At bedside today, patient is states she is feeling better. His pain has been well-controlled with oral analgesics. Culture results came back which were negative. WBC count has been consistently downtrending 12.[address] Elizabeth, agreed on discharge. We will discharge patient home on oral antibiotics. Recommended outpatient wound care and follow-up with general surgery, PCP in 1 to 2 weeks of discharge. Also advised to have follow-up LFTs on next PCP visit. Felicitas Platt MD
--- NOTE | 2024-03-25 16:05 | PC.CC ---
Addendum entered and electronically signed by [facility] 03/29/24 15:09: [Late Entry] 03/25/24 - Met w/ patient at bedside. He confirms he is self-pay at this time but intends to work on insurance coverage. Provided information to sign up for the myinsulRx program and instructed patient to sign up and present to pharmacy at time of Tresiba diamond picker. Demonstrated use of insulin pen and gave verbal instruction on insulin injection technique. Verified understanding via teach-back. Discussed role of CGM and encouraged patient to use data to guide nutrition choices. Discussed low blood sugar alarm and next steps. No additional needs at this time. Original Note: Attempted to visit patient to discuss insulin injection and medication affordability. Patient receiving care, unable to visit. Will re-attempt. Patient eligible to receive Tresiba for $35 through myinsulinRx program.
--- NOTE | 2024-03-26 17:20 | PC.CM ---
Patient does not qualify for home health services due to insurance.
== END 2024-03-25 16:33 | disposition home or self-care (01) | DRG 345 ==
LOC: SERX 17:01 → SERHOLD 17:41 → S3NX 20:42
PROVIDERS: Nurse Practitioner Family; Nurse Practitioner Primary Care; Student in an Organized Health Care Education/Training Program; Surgery; Admitting Provider Student in an Organized Health Care Education/Training Program; Emergency Provider Emergency Medicine; Visit Provider Student in an Organized Health Care Education/Training Program
PROC: 0D9P0ZZ Drainage of Rectum, Open Approach (ICD-10-PCS; principal; 2024-03-19 18:30)
DX: K61.2 Anorectal abscess (principal); E11.52 Type 2 diabetes mellitus with diabetic peripheral angiopathy with gangrene; L02.31 Cutaneous abscess of buttock; L03.317 Cellulitis of buttock; E11.65 Type 2 diabetes mellitus with hyperglycemia; Z79.4 Long term (current) use of insulin; Z59.71 Insufficient health insurance coverage; F17.210 Nicotine dependence, cigarettes, uncomplicated
CPT/HCPCS: 36415; 74177; 80053; 80307; 81001; 82010; 82043; 82570; 83036; 83605; 83735; 84100; 84145; 85025; 85610; 85652; 85730; 86140; 87040; 87070; 87075; 87081; 87086; 87205; 93225; 96361; 96365; 96372; 96375; 99285; A4217; A4649; J0696; J1643; J1815; J1885; J2250; J2270; J2405; J2470; J2543; J2704; J3010; J3371; J3490; J7030; J7050; J7999; Q9967; A9270

== ENCOUNTER 2024-04-06 15:25 | Emergency (ER) | payer MEDICAID, SELFPAY ==
[2024-04-06 15:42] VITALS: BP 119/79; PULSE 87; RESP 16; TEMP 36.9; O2SAT 98; BMI 31.3
--- NOTE | 2024-04-06 16:09 | PD.EDSKIN ---
ED Skin Abcess FB-RME/HPI General Chief complaint: Skin/Abscess/Foreign Body Stated complaint: diabetic ulcer recheck s/p surgical debridement Time Seen by Provider: 04/06/24 15:51 Arrival date/time: 04/06/24 15:25 39-year-old male presents emergency department today patient had a perianal abscess patient required surgery patient is here for wound recheck patient reports that the wound is healing well with no fever nausea or vomiting Limitations: no limitations Related Data Previous Rx's ?Medication ?Instructions ?Recorded ascorbic acid (vitamin C) 500 mg 500 mg PO QDAY 30 days #30 caps 03/21/24 capsule blood-glucose meter,continuous #1 ea 03/21/24 (FreeStyle Sarbjit 3 [place]) blood-glucose sensor (FreeStyle #1 ea 03/21/24 Sarbjit 3 Plus Sensor device) zinc gluconate 50 mg tablet 50 mg PO QDAY #30 tabs 03/21/24 glucagon 0.5 mg/0.1 mL 0.5 mg (0.1 mL) subcut QDAY PRN 03/22/24 subcutaneous auto-injector (Gvoke hypoglycemia #0.1 mL HypoPen 1-Pack) insulin degludec 100 unit/mL (3 20 unit (0.2 mL) subcut HS #15 mL 03/22/24 mL) subcutaneous pen (Tresiba FlexTouch U-100 insulin) metformin 500 mg tablet 500 mg PO BID #30 tabs 03/22/24 polyethylene glycol 3350 17 17 g PO QDAY PRN constipation #119 03/24/24 gram/dose oral powder (Miralax) grams sennosides 8.6 mg capsule (senna) 8.6 mg PO QDAY PRN constipation 03/24/24 #30 caps pen needle, diabetic 29 gauge x #100 ea 03/25/24 1/2 (Ultra-Thin II Insulin Pen Ennis) sodium hypochlorite 0.125 % 1 applic topical BID #473 mL 03/25/24 solution (Dakin's Solution) cephalexin 500 mg capsule 500 mg PO BID 7 days #14 caps 04/06/24 Allergies Allergy/AdvReac Type Severity Reaction Status Date / Time No Known Allergies Allergy Verified 04/06/24 15:27 Review of Systems Review of Systems Systems Reviewed: All systems reviewed, normal except as documented Constitutional Constitutional: Reports system reviewed and no additional complaints, except as documented, Denies fever(s) and Denies headache(s) Eyes Eyes: Reports system reviewed and no additional complaints, except as documented and Denies blurry vision ENT Ears, Nose, Mouth, and Throat: Reports system reviewed and no additional complaints, except as documented, Denies headache(s), Denies nasal congestion and Denies nasal discharge Cardiovascular Cardiovascular: Reports system reviewed and no additional complaints, except as documented, Denies chest pain and Denies dyspnea Respiratory Respiratory: Reports system reviewed and no additional complaints, except as documented, Denies chest congestion, Denies cough and Denies dyspnea Gastrointestinal Gastrointestinal: Reports system reviewed and no additional complaints, except as documented and Denies abdominal pain Integumentary/Breasts Skin/Breast: Reports system reviewed and no additional complaints, except as documented, Denies rash and Reports other (Wound surgical left buttock) Neurologic Neurologic: Reports system reviewed and no additional complaints, except as documented, Reports as per HPI and Denies headache(s) Past Medical History Past Medical History NEUROLOGIC: Negative Neurological Disorders CARDIAC: Negative Cardiac Disorders ED Exam General Limitations: Present no limitations General appearance: Present alert and in no apparent distress Head Head exam: Present atraumatic Eye Eye exam: Present normal appearance, PERRL and EOMI ENT ENT exam: Present normal exam, normal oropharynx and mucous membranes moist Neck Neck exam: Present normal inspection, full ROM and trachea midline Chest Chest inspection: Present normal inspection and symmetric chest wall rise Respiratory Respiratory exam: Present normal lung sounds bilaterally Cardiovascular Cardiovascular exam: Present regular rate, normal rhythm and normal heart sounds Abdominal Exam Abdominal exam: Present soft and normal bowel sounds Extremities Exam Extremities exam: Present normal inspection and full ROM Back Exam Back exam: Present normal inspection and full ROM Neurological Exam Neurological exam: Present alert, oriented X3 and CN II-XII intact Psychiatric Psychiatric exam: Present normal affect and normal mood Skin Skin exam: Present warm, dry and other (Wound left buttock) Course Quality Measures none Orders Category Date Time Status Wound Care NOW Care 04/06/24 16:09 Active Vital Signs Vital signs: Vital Signs Temperature 98.5 F 04/06/24 15:42 Pulse Rate 87 04/06/24 15:42 Respiratory Rate 16 04/06/24 15:42 Blood Pressure 119/79 04/06/24 15:42 Pulse Oximetry (%) 98 04/06/24 15:42 Oxygen Delivery Method Room Air 04/06/24 15:42 O2 saturation 98% room air within normal limits Skin / Abscess / Foreign Body MDM Narrative MDM Narrative:: 39-year-old male presents emergency department today patient had a perianal abscess patient required surgery patient is here for wound recheck patient reports that the wound is healing well with no fever nausea or vomiting Wound care performed no acute infection noted Patient given prophylactic antibiotic for at home Patient has new dressing applied and given supplies for dressing changes Patient discharged home in no distress to follow-up with primary care doctor in the next 24 to 48 hours and for any worsening symptoms to return to the ER immediately Patient data External records reviewed:: [facility] previous records Clinical information provided by:: patient Social determinants that could affect healthcare access:: none Patient has the following chronic illnesses:: See history How is presenting disease/condition affected by chronic disease/condition?: caused by Evaluation data The following diagnostics were reviewed and interpreted by me:: other (specify) (N/A) Lab and/or radiology exams considered but not ordered:: Consider not ordered Interpretation Summary: N/A Medications / Prescriptions Medications or Prescriptions considered but not ordered:: Given Medication administrations:: Given Consultations Consultation(s) initiated? (list below): No Diagnosis Skin/Abscess Differential Diagnosis: abscess of skin or subcutaneous tissue and cellulitis Most likely diagnosis given after review of the tests above:: Wound care Admission Indicated Admission indicated?: not indicated Admission Request Was there a request for admission?: No Disposition Plan Disposition Plan: Discharge Discharge Attestation Discharge Attestation: The patient and all family members were given an opportunity to ask questions and understood the discharge instructions. Discharge instructions specifically effects, indications for sooner follow up or return to the emergency department, and the expected course of current diagnosis. Patient condition: Stable Discharge Plan Plan Patient Disposition: HOME (Self Care) Disposition Comment: stable Prescriptions/Referrals Prescriptions/Med Rec: New cephalexin 500 mg capsule 500 mg PO BID 7 Days Qty: 14 0RF No Action ascorbic acid (vitamin C) 500 mg capsule 500 mg PO QDAY 30 Days Qty: 30 0RF zinc gluconate 50 mg tablet 50 mg PO QDAY Qty: 30 0RF (DME) Half Off DepotStyle Sarbjit 3 Plus Sensor Device See Rx Instructions .Route Qty: 1 0RF Rx Instructions: As directed (DME) FreeStyle Sarbjit 3 [place] Misc See Rx Instructions .Route Qty: 1 0RF Rx Instructions: As directed insulin degludec [Tresiba FlexTouch U-100] 100 unit/mL (3 mL) insulin pen 20 unit subcut HS Qty: 15 0RF metformin 500 mg tablet 500 mg PO BID Qty: 30 0RF Gvoke HypoPen 1-Pack 0.5 mg/0.1 mL auto-injector 0.5 mg subcut QDAY PRN (Reason: hypoglycemia) Qty: 0.1 0RF polyethylene glycol 3350 [Miralax] 17 gram/dose powder 17 g PO QDAY PRN (Reason: constipation) Qty: 119 0RF senna 8.6 mg capsule 8.6 mg PO QDAY PRN (Reason: constipation) Qty: 30 0RF Dakin's Solution 0.125 % solution 1 applic topical BID Qty: 473 0RF (DME) pen needle, diabetic [Ultra-Thin II Ins Pen Ennis] 29 gauge x 1/2 needle See Rx Instructions .Route Qty: 100 0RF Rx Instructions: As directed Problem List Clinical Impression: Visit for wound care Patient/Caregiver Discharge Instructions Education Materials: Wound Care Additional Instructions: Please follow up with your primary care doctor in the next 24-48hrs for any worsening symptoms return here immediately Print Language: Kyrgyz Stand Alone Forms: Debby Award Info., Work/School Release, Patient Portal Info Letter PA/[employer]ADERSHIP DEVELOPMENT CONSULTANT Supervising Physician PA/LEADERSHIP DEVELOPMENT CONSULTANT Supervising Physician: Dr. Greene
== END 2024-04-06 16:40 | disposition home or self-care (01) ==
LOC: SERX 16:36
PROVIDERS: Emergency Provider Emergency Medicine; PCP Family Medicine
DX: K61.0 Anal abscess (principal)
CPT/HCPCS: 99282

== ENCOUNTER → 2024-04-15 | Outpatient (CLI) | payer MEDICAID, SELFPAY | END | disposition home or self-care (01) | PROVIDERS: PCP Physician Assistant; Referring Provider Physician Assistant; Visit Provider Physician Assistant | DX: L02.31 Cutaneous abscess of buttock (principal); S31.829A Unspecified open wound of left buttock, initial encounter; X58.XXXA Exposure to other specified factors, initial encounter; E11.69 Type 2 diabetes mellitus with other specified complication; Z79.84 Long term (current) use of oral hypoglycemic drugs; Z79.4 Long term (current) use of insulin; F17.200 Nicotine dependence, unspecified, uncomplicated | CPT/HCPCS: 99213; A9270; G0463 ==

== ENCOUNTER → 2024-04-22 | Outpatient (CLI) | payer MEDICAID, SELFPAY | END | disposition home or self-care (01) | LOC: SWHD 14:37 | PROVIDERS: PCP Physician Assistant; Referring Provider Physician Assistant; Visit Provider Surgery | DX: L02.31 Cutaneous abscess of buttock (principal); S31.829A Unspecified open wound of left buttock, initial encounter; X58.XXXA Exposure to other specified factors, initial encounter; E11.69 Type 2 diabetes mellitus with other specified complication; Z79.4 Long term (current) use of insulin; Z79.84 Long term (current) use of oral hypoglycemic drugs; F17.200 Nicotine dependence, unspecified, uncomplicated | CPT/HCPCS: 99213; A9270; G0463 ==

== ENCOUNTER → 2024-04-29 | Outpatient (CLI) | payer MEDICAID, SELFPAY | END | disposition home or self-care (01) | PROVIDERS: PCP Physician Assistant; Referring Provider Physician Assistant; Visit Provider Surgery | DX: L02.31 Cutaneous abscess of buttock (principal); S31.829A Unspecified open wound of left buttock, initial encounter; X58.XXXA Exposure to other specified factors, initial encounter; E11.69 Type 2 diabetes mellitus with other specified complication; Z79.4 Long term (current) use of insulin; Z79.84 Long term (current) use of oral hypoglycemic drugs; F17.200 Nicotine dependence, unspecified, uncomplicated | CPT/HCPCS: 99213; A9270; G0463 ==

== ENCOUNTER → 2024-05-06 | Outpatient (CLI) | payer MEDICAID, SELFPAY | END | disposition home or self-care (01) | PROVIDERS: PCP Physician Assistant; Referring Provider Physician Assistant; Visit Provider Surgery | DX: L02.31 Cutaneous abscess of buttock (principal); S31.829A Unspecified open wound of left buttock, initial encounter; X58.XXXA Exposure to other specified factors, initial encounter; E11.69 Type 2 diabetes mellitus with other specified complication; Z79.4 Long term (current) use of insulin; Z79.84 Long term (current) use of oral hypoglycemic drugs; F17.200 Nicotine dependence, unspecified, uncomplicated | CPT/HCPCS: 99213; A9270; G0463 ==

== ENCOUNTER → 2024-05-20 | Outpatient (CLI) | payer MEDICAID, SELFPAY | END | disposition home or self-care (01) | LOC: SWHD 08:00 | PROVIDERS: PCP Physician Assistant; Referring Provider Physician Assistant; Visit Provider Student in an Organized Health Care Education/Training Program | DX: L02.31 Cutaneous abscess of buttock (principal); S31.829A Unspecified open wound of left buttock, initial encounter; X58.XXXA Exposure to other specified factors, initial encounter; E11.69 Type 2 diabetes mellitus with other specified complication; Z79.4 Long term (current) use of insulin; Z79.84 Long term (current) use of oral hypoglycemic drugs; F17.200 Nicotine dependence, unspecified, uncomplicated | CPT/HCPCS: 99213; G0463 ==

== ENCOUNTER → 2024-06-03 | Outpatient (CLI) | payer MEDICAID, SELFPAY | END | disposition home or self-care (01) | LOC: SWHD 08:05 | PROVIDERS: PCP Physician Assistant; Referring Provider Physician Assistant; Visit Provider Surgery | DX: L02.31 Cutaneous abscess of buttock (principal); S31.829A Unspecified open wound of left buttock, initial encounter; X58.XXXA Exposure to other specified factors, initial encounter; E11.69 Type 2 diabetes mellitus with other specified complication; Z79.4 Long term (current) use of insulin; Z79.84 Long term (current) use of oral hypoglycemic drugs; F17.200 Nicotine dependence, unspecified, uncomplicated | CPT/HCPCS: 99212; G0463 ==